=== PATIENT | female | born 1955 | race Caucasian/White ===

== ENCOUNTER 2017-10-04 16:25 | Emergency (ER) | payer BC ==
[~2017-10-04] VITALS: Ht 167.6 cm; Wt 80.3 kg
[~2017-10-04 16:25] MED LIST: LORTA5 PO
[2017-10-04 16:27] VITALS: BP 182/90; PULSE 83; RESP 16; TEMP 97.4; O2SAT 95
[2017-10-04] MEDS ORDERED: PENT400T PO (16:47)
[2017-10-04] MEDS ORDERED: HYDR-3516 PO (16:47)
[2017-10-04] MEDS ORDERED: LEVO100T5 PO (16:47)
[2017-10-04] MEDS ORDERED: PROZ40CA PO (16:47)
[2017-10-04] MEDS ORDERED: LETR2.5T (16:47)
[2017-10-04] MEDS ORDERED: GABA300C5 PO (16:47)
[2017-10-04] MEDS ORDERED: ROSU1TAB10 PO (16:48)
--- NOTE | 2017-10-04 16:56 | PD ---
HPI Chief Complaint: Abdominal Pain Time Seen by Provider: 16:35 Travel History International Travel<30 days: No Contact w/Intl Traveler<30days: No Traveled to known affect area: No History of Present Illness HPI 61-year-old female presents with lower abdominal pain. She states she is also nauseous and had 1 episode where she vomited a small amount. She denies any other concurrent concerns. She states she went to an urgent care and they referred her here for further care. Quality of pain is crampy. Severity is moderate. She denies any migration the pain. She denies specific modifying factors. She states she had diverticulitis once a couple years ago when she went to the hospital for bloody diarrhea. She denies any other significant GI issues that she can recall. PFSH Past Medical History Hx Anticoagulant Therapy: Yes (BABY ASA DAILY) Anxiety: Yes Depression: Yes Cancer: Yes (breast dx aug 2013) Cardiovascular Problems: Yes (CHOL) High Cholesterol: Yes Diabetes: No Diminished Hearing: No Thyroid Disease: Yes Tetanus Vaccination: Unknown Influenza Vaccination: Yes ?: Not Tubal Ligation: Yes Social History Alcohol Use: No Tobacco Use: No Substance Use: No Allergies-Medications (Allergen,Severity, Reaction): Coded Allergies: cefuroxime (Unverified Allergy, Severe, rash, 10/04/17) erythromycin base (Unverified Allergy, Severe, rash, 10/04/17) levofloxacin (Unverified Allergy, Severe, rash, 10/04/17) Sulfa (Sulfonamide Antibiotics) (Verified Allergy, Unknown, 10/04/17) adhesive (Verified Allergy, Unknown, 10/04/17) azithromycin (Verified Allergy, Unknown, 10/04/17) doxycycline (Verified Allergy, Unknown, 10/04/17) prochlorperazine (Verified Allergy, Unknown, 10/04/17) Reported Meds & Prescriptions Reported Meds & Active Scripts Active Percocet (Oxycodone-Acetaminophen) 5-325 mg Tab 1 Tab PO Q6H PRN Reported Rosuvastatin (Rosuvastatin Calcium) 40 Mg Tab 40 Mg PO DAILY Pentoxifylline ER (Pentoxifylline) 400 Mg Tab 400 Mg PO TID Hydrocodone-Acetaminophen 5-325 mg Tab 1 Tab PO Q6H PRN Levothyroxine (Levothyroxine Sodium) 100 Mcg Tab 100 Mcg PO DAILY Letrozole 2.5 Mg Tab Gabapentin 300 Mg Cap 300 Mg PO QID Prozac (Fluoxetine HCl) 40 Mg Cap 40 Mg PO BID Review of Systems Except as stated in HPI: all other systems reviewed are Neg Physical Exam Narrative GENERAL: Well-nourished, well-developed patient. SKIN: Warm and dry. HEAD: Normocephalic and atraumatic. EYES: No injection or drainage. ENT: No nasal drainage noted. NECK: Supple, trachea midline. CARDIOVASCULAR: Regular rate and rhythm RESPIRATORY: No increased effort. No accessory muscle use. GASTROINTESTINAL: Abdomen soft, tender left lower quadrant, nondistended. No rebound or guarding EXTREMITIES: No edema. NEUROLOGICAL: Awake and alert. Motor and sensory grossly within normal limits. Normal speech. Data Data Last Documented VS Vital Signs Date Time Temp Pulse Resp B/P (MAP) Pulse Ox O2 Delivery O2 Flow Rate FiO2 10/04/17 19:34 10/04/17 18:32 75 96 Nasal Cannula 1.00 10/04/17 16:27 97.4 16 Orders Orders Complete Blood Count With Diff (10/04/17 16:35) Comprehensive Metabolic Panel (10/04/17 16:35) Urinalysis - C+S If Indicated (10/04/17 16:35) Lipase (10/04/17 16:35) Ct Abd/Pel W Iv Contrast(Rout) (10/04/17 ) Iv Access Insert/Monitor (10/04/17 16:35) Ondansetron Inj (Zofran Inj) (10/04/17 17:00) Iohexol 350 Inj (Omnipaque 350 Inj) (10/04/17 18:13) Ketorolac Inj (Toradol Inj) (10/04/17 18:45) Ed Discharge Order (10/04/17 18:51) Labs Laboratory Tests Test 10/04/17 17:06 10/04/17 17:36 White Blood Count 7.6 TH/MM3 Red Blood Count 4.97 MIL/MM3 Hemoglobin 14.4 GM/DL Hematocrit 44.3 % Mean Corpuscular Volume 89.1 FL Mean Corpuscular Hemoglobin 29.0 PG Mean Corpuscular Hemoglobin Concent 32.6 % Red Cell Distribution Width 13.2 % Platelet Count 237 TH/MM3 Mean Platelet Volume 7.3 FL Neutrophils (%) (Auto) 74.5 % Lymphocytes (%) (Auto) 15.2 % Monocytes (%) (Auto) 7.8 % Eosinophils (%) (Auto) 1.9 % Basophils (%) (Auto) 0.6 % Neutrophils # (Auto) 5.7 TH/MM3 Lymphocytes # (Auto) 1.2 TH/MM3 Monocytes # (Auto) 0.6 TH/MM3 Eosinophils # (Auto) 0.1 TH/MM3 Basophils # (Auto) 0.0 TH/MM3 CBC Comment DIFF FINAL Differential Comment Blood Urea Nitrogen 25 MG/DL Creatinine 0.90 MG/DL Random Glucose 101 MG/DL Total Protein 7.5 GM/DL Albumin 3.7 GM/DL Calcium Level 9.0 MG/DL Alkaline Phosphatase 118 U/L Aspartate Amino Transf (AST/SGOT) 24 U/L Alanine Aminotransferase (ALT/SGPT) 34 U/L Total Bilirubin 0.4 MG/DL Sodium Level 142 MEQ/L Potassium Level 3.6 MEQ/L Chloride Level 108 MEQ/L Carbon Dioxide Level 26.1 MEQ/L Anion Gap 8 MEQ/L Estimat Glomerular Filtration Rate 64 ML/MIN Lipase 168 U/L Urine Color YELLOW Urine Turbidity CLEAR Urine pH 6.0 Urine Specific [place] 1.014 Urine Protein 30 mg/dL Urine Glucose (UA) NEG mg/dL Urine Ketones NEG mg/dL Urine Occult Blood MOD Urine Nitrite NEG Urine Bilirubin NEG Urine Leukocyte Esterase SMALL Urine RBC 4-9 /hpf Urine WBC 3-5 /hpf Urine Squamous Epithelial Cells 0-5 /hpf Microscopic Urinalysis Comment CULT NOT INDICATED MDM Medical Decision Making Medical Screen Exam Complete: Yes Emergency Medical Condition: Yes Medical Record Reviewed: Yes (past history confirmed) Interpretation(s) CBC & BMP Diagram 10/04/17 17:06 Total Protein 7.5, Albumin 3.7, Calcium Level 9.0, Alkaline Phosphatase 118 H, Aspartate Amino Transf (AST/SGOT) 24, Alanine Aminotransferase (ALT/SGPT) 34, Total Bilirubin 0.4 Last 24 hours Impressions Abdomen/Pelvis CT 10/04/17 0000 Signed Impressions: Service Date/Time: Wednesday, October 04, 2017 18:02 - CONCLUSION: 1. 9 mm left UPJ stone with mild hydronephrosis. 2. Bilateral L5 pars defects. Piter Montoya Jr., MD Differential Diagnosis Diverticulitis, kidney stone, pancreatitis, colitis Narrative Course Will check blood work, urinalysis, CT scan and reevaluate Will provide with Toradol for pain control, CT shows large left UPJ stone, Patient denies any new complaints and states that they are feeling better. Patient happy with care, all questions answered. Patient knows that follow up is incumbent on them and to return to the emergency room immediately if new or worsening symptoms develop. Patient given strict return precautions, vitals reviewed and are normal, agrees to further workup as an outpatient. Physician Communication Physician Communication dr dumas states to discharge and have patient follow in clinic Tuesday Diagnosis Primary Impression: Ureteral calculus, left Referrals: Ash Dumas DO call for appointment tuesday this week Patient Instructions: General Instructions Additional Instructions: return as needed, percocet as needed for severe pain Med/Other Pt SpecificInfo: Prescription(s) given Scripts Oxycodone-Acetaminophen (Percocet) 5-325 mg Tab 1 TAB PO Q6H Y for PAIN, #15 TAB 0 Refills Prov: Pascale Lambert MD 10/04/17 Disposition: 01 DISCHARGE HOME Condition: Stable Pascale Lambert MD Oct 04, 2017 16:56
[2017-10-04] MEDS ORDERED: ONDANSETRON HCL 4 MG/2 ML VIAL IV PUSH ONE (17:00)
[2017-10-04 17:13] LABS: AUTOMATED NEUTROPHIL # 5.7 TH/MM3 (1.8-7.7); BASOPHIL % 0.6 % (0.0-2.0); EOSINOPHIL # 0.1 TH/MM3 (0-0.4); EOSINOPHIL % 1.9 % (0.0-4.0); HEMATOCRIT 44.3 % (35.0-46.0); HEMOGLOBIN 14.4 GM/DL (11.6-15.3); LYMPH % 15.2 % (9.0-44.0); LYMPHOCYTE # 1.2 TH/MM3 (1.0-4.8); MEAN CELL VOLUME 89.1 FL (80.0-100.0); MEAN CORPUSCULAR HGB CONC 32.6 % (32.0-36.0); MEAN PLATELET VOLUME 7.3 FL (7.0-11.0); MONO % 7.8 % (0.0-8.0); MONOCYTE # 0.6 TH/MM3 (0-0.9); NEUT % 74.5 % (16.0-70.0); PLATELET COUNT 237 TH/MM3 (150-450); RED BLOOD COUNT 4.97 MIL/MM3 (4.00-5.30); RED CELL DISTRIBUTION WIDTH 13.2 % (11.6-17.2); WHITE BLOOD COUNT 7.6 TH/MM3 (4.0-11.0)
[2017-10-04 17:24] LABS: CHLORIDE 108 MEQ/L (98-107); SODIUM (NA) 142 MEQ/L (136-145)
[2017-10-04 17:28] LABS: ALBUMIN 3.7 GM/DL (3.4-5.0); BICARBONATE 26.1 MEQ/L (21.0-32.0); BLOOD UREA NITROGEN 25 MG/DL (7-18); GLUCOSE,RANDOM 101 MG/DL (74-106); LIPASE 168 U/L (73-393)
[2017-10-04 17:31] LABS: ALT (GPT) 34 U/L (10-53); AST (GOT) 24 U/L (15-37); GLOMERULAR FILTRATION RATE 64 ML/MIN (>89)
[2017-10-04 17:32] LABS: TOTAL BILIRUBIN ADULT 0.4 MG/DL (0.2-1.0); TOTAL PROTEIN 7.5 GM/DL (6.4-8.2)
[2017-10-04 17:34] LABS: ALKALINE PHOSPHATASE 118 U/L (45-117)
[2017-10-04 17:49] VITALS: BP 117/77; PULSE 74; O2SAT 99
[2017-10-04 17:54] LABS: BILIRUBIN, URINE NEG (NEG); BLOOD, URINE MOD (NEG); GLUCOSE,URINE NEG (NEG); KETONE, URINE NEG (NEG); NITRITE,URINE NEG (NEG); URINE LEUKOCYTE ESTERASE SMALL (NEG)
[2017-10-04] MEDS ORDERED: IOHEXOL 350 MG/ML 10 ML VIAL (for RAD DIAG) IVCONTRAST ONE (18:13)
[2017-10-04 18:14] LABS: URINE COLOR YELLOW (YELLW/STRAW)
[2017-10-04 18:15] LABS: SQUAMOUS EPITHELIAL CELL URINE 0-5 /hpf (0-5)
[2017-10-04 18:32] VITALS: BP 198/113; PULSE 75; O2SAT 96
--- NOTE | 2017-10-04 18:35 | RADRPT ---
EXAM DATE/TIME: 10/04/2017 18:02 [facility] COMPARISON: No previous studies available for comparison. INDICATIONS : Left lower quadrant pain. IV CONTRAST: 95 cc Omnipaque 350 (iohexol) IV ORAL CONTRAST: No oral contrast ingested. RADIATION DOSE: 15.01 CTDIvol (mGy) MEDICAL HISTORY : Carcinoma, breast. SURGICAL HISTORY : None. ENCOUNTER: Initial ACUITY: 2 days PAIN SCALE: 4/10 LOCATION: Left lower quadrant TECHNIQUE: Volumetric scanning of the abdomen and pelvis was performed. Using automated exposure control and ad justment of the mA and/or kV according to patient size, radiation dose was kept as low as reasonably achievable to obtain optimal diagnostic quality images. DICOM format image data is available electro nically for review and comparison. FINDINGS: LOWER LUNGS: The visualized lower lungs are clear. LIVER: Homogeneous density without lesion. There is no dilation of the biliary tree. No calcified gallston es. SPLEEN: Normal size without lesion. PANCREAS: Within normal limits. KIDNEYS: There is a 9 mm stone involving the left UPJ. There is mild hydronephrosis. No other stones observed. Right kidney is unremarkable. No perinephric stranding or fluid collections. ADRENAL GLANDS: Within normal limits. VASCULAR: There is no aortic aneurysm. BOWEL/MESENTERY: The stomach, small bowel, and colon demonstrate no acute abnormality. There is no free intraperitone al air or fluid. ABDOMINAL WALL: Within normal limits. RETROPERITONEUM: There is no lymphadenopathy. BLADDER: No wall thickening or mass. REPRODUCTIVE: Within normal limits. INGUINAL: There is no lymphadenopathy or hernia. MUSCULOSKELETAL: Bilateral L5 pars defects with mild grade 1 anterolisthesis. CONCLUSION: 1. 9 mm left UPJ stone with mild hydronephrosis. 2. Bilateral L5 pars defects. Piter Montoya Jr., MD on October 04, 2017 at 18:28 Board Certified Radiologist. This report was verified electronically.
[2017-10-04] MEDS ORDERED: KETOROLAC TROMETHAMINE 30 MG/ML (IVP) VIAL IV PUSH ONE (18:45)
[2017-10-04] MEDS ORDERED: PERC5TAB12 PO ×2 (18:53→18:54)
[2017-10-07] MEDS ORDERED: LYSI1000 (09:22)
[2017-10-07] MEDS ORDERED: OMEP20TA93 PO (09:22)
[2017-10-07] MEDS ORDERED: ASPI-516 CHEW (09:22)
[2017-10-07] MEDS ORDERED: IBUP1TAB7 PO (09:22)
[2017-10-07] MEDS ORDERED: ZOFR4TAB PO (10:08)
[2017-10-07] MEDS ORDERED: PERC5TAB12 PO (10:08)
== END 2017-10-04 19:36 | disposition home or self-care (01) ==
LOC: PHED 16:25
DX: N13.2 Hydronephrosis with renal and ureteral calculous obstruction (principal); E78.00 Pure hypercholesterolemia, unspecified; F32.9 Major depressive disorder, single episode, unspecified; Z85.3 Personal history of malignant neoplasm of breast; Z79.82 Long term (current) use of aspirin
CPT/HCPCS: 74177; 80053; 81001; 83690; 85025; 96374; 99285; J1885; Q9967

== ENCOUNTER → 2017-10-26 | Day surgery (SDC) | payer BC ==
[~2017-10-26] MED LIST changes: +ASPI-516 CHEW; +CALC1TAB12 PO; +CHLORHEXIDINE GLUCONATE 2 % 1 PACK (2 CLOTHS) TOPICAL PRN; +GABA300C5 PO; +GLUC500T4 PO; +IBUP1TAB7 PO; +LACTATED RINGER'S 1000 ML IV PRN; +LETR2.5T PO; +LEVO100T5 PO; -LORTA5 PO; +LYSI1000 PO; +METOPROLOL TARTRATE 25 MG TAB PO PRN; +MISC INFORMATION SCH; +OMEP20TA93 PO; +PENT400T PO; +PERC5TAB12 PO; +POVIDONE IODINE 5% (ANTISEPSIS KIT) 4 APPLICATIONS EACH NARE PRN; +PROZ40CA PO; +ROSU1TAB10 PO; +SODIUM CHLORID 0.9% 500 ML IV PRN; +VITA200C3 PO; +VITACAP7 PO; +ZOFR4TAB PO; +ceFAZolin 1,000 MG/NS 100 ML IV SCH
[2017-10-26 05:45] VITALS: BP 151/94; PULSE 75; RESP 20; TEMP 97.8; O2SAT 100
--- NOTE | 2017-10-26 06:18 | RADRPT ---
EXAM DATE/TIME: 10/26/2017 05:37 [facility] COMPARISON: CT ABDOMEN & PELVIS W CONTRAST, October 04, 2017, 18:02. INDICATIONS : Pre op lithotripsy. MEDICAL HISTORY : None. SURGICAL HISTORY : None. ENCOUNTER: Initial ACUITY: 1 day PAIN SCORE: 0/10 LOCATION: Bilateral abdomen FINDINGS: 2 supine frontal views of the abdomen demonstrate no definite abnormal densities overlying the kidney s but both kidneys are significantly obscured by overlying bowel gas and stool. The stone previously documented at the left ureteropelvic junction is not definitely seen. There are multiple high density structures associated with the colon. A large amount of stool is present. No organomegaly is present . Bones demonstrate no acute finding. Lung bases are clear. CONCLUSION: No renal stones are identified. However, there is a large amount of stool and bowel gas obscuring the kidneys. Multiple ovoid high density structures are seen and are likely associated with the colon an d rectum. Chip Oakley MD on October 26, 2017 at 6:14 Board Certified Radiologist. This report was verified electronically.
== END | disposition home or self-care (01) ==
LOC: HSDC 05:18
PROVIDERS: ATTEND Urology
DX: N20.0 Calculus of kidney (principal); Z53.09 Procedure and treatment not carried out because of other contraindication
CPT/HCPCS: 74018; 99211; G0463

== ENCOUNTER → 2017-11-16 | Day surgery (SDC) | payer BC ==
[~2017-11-16] VITALS: Ht 170.2 cm; Wt 80.5 kg
[~2017-11-16] MED LIST changes: +AMLO5 PO; +DEXAMETHASONE SOD PHOS 4 MG/ML VIAL IV ONE; +DO NOT ADM ANY ANTICOAGULANT DRUGS PRN; +LIDOCAINE HCL 1% PF 5 ML SYRINGE OTHER ONE; +MACR100C2 PO; +MIDAZOLAM HCL 2 MG/2 ML VIAL ONE; -MISC INFORMATION SCH; +ONDANSETRON HCL 4 MG/2 ML VIAL IV ONE; +ONDANSETRON HCL 4 MG/2 ML VIAL IV PUSH PRN; +PROPOFOL 200 MG/20 ML AMP IV ONE; -ceFAZolin 1,000 MG/NS 100 ML IV SCH; +oxyCODONE/ACETAMINOPHEN 5 MG/325 MG TAB PO PRN
--- NOTE | 2017-11-16 09:08 | RADRPT ---
EXAM DATE/TIME: 11/16/2017 08:40 [facility] COMPARISON: ABDOMEN KUB ONLY, October 26, 2017, 5:37. INDICATIONS : Pre op ESWL. Left side kidney stone. MEDICAL HISTORY : Carcinoma, breast. SURGICAL HISTORY : Infusaport ENCOUNTER: Initial ACUITY: 1 day PAIN SCORE: 10 LOCATION: Left Abdomen FINDINGS: Single portable supine view of the abdomen demonstrates no definite abnormal densities overlying the kidneys. The kidneys, particularly the right kidney, is obscured by overlying bowel gas and stool. No concerning densities are seen along the expected course of ureters or within the pelvis. There are p ersistent ovoid densities are likely associated with the colon. No organomegaly or signs of bowel structures are present. No acute osseous abnormality is visualized. CONCLUSION: No renal stones are identified. The kidneys are partially obscured by bowel gas and stool. Chip Oakley MD on November 16, 2017 at 9:04 Board Certified Radiologist. This report was verified electronically.
[2017-11-16 09:31] LABS: AUTOMATED NEUTROPHIL # 4.2 TH/MM3 (1.8-7.7); BASOPHIL # 0.1 TH/MM3 (0-0.2); BASOPHIL % 0.9 % (0.0-2.0); EOSINOPHIL # 0.2 TH/MM3 (0-0.4); EOSINOPHIL % 3.9 % (0.0-4.0); HEMATOCRIT 39.3 % (35.0-46.0); HEMOGLOBIN 13.6 GM/DL (11.6-15.3); LYMPH % 17.3 % (9.0-44.0); LYMPHOCYTE # 1.1 TH/MM3 (1.0-4.8); MEAN CELL VOLUME 88.9 FL (80.0-100.0); MEAN CORPUSCULAR HEMOGLOBIN 30.7 PG (27.0-34.0); MEAN CORPUSCULAR HGB CONC 34.5 % (32.0-36.0); MEAN PLATELET VOLUME 7.4 FL (7.0-11.0); MONO % 8.8 % (0.0-8.0); MONOCYTE # 0.5 TH/MM3 (0-0.9); NEUT % 69.1 % (16.0-70.0); PLATELET COUNT 225 TH/MM3 (150-450); RED BLOOD COUNT 4.42 MIL/MM3 (4.00-5.30); RED CELL DISTRIBUTION WIDTH 14.3 % (11.6-17.2); WHITE BLOOD COUNT 6.1 TH/MM3 (4.0-11.0)
--- NOTE | 2017-11-16 12:22 | PD.OP ---
Operative Report Date of Surgery: Nov 16, 2017 Preoperative Diagnosis: (1) Ureteral calculus, left Postoperative Diagnosis: (1) Ureteral calculus, left Procedure: Extracorporeal shockwave lithotripsy left proximal ureteral calculus Anesthesia: General Surgeon: Alfonzo Anguiano Vocational Evaluator(s): None Operation and Findings: Indication for procedure: Case of a pleasant 61-year-old female with a 9 mm proximal left ureteral calculus who presents today to undergo shockwave lithotripsy. Operative procedure in detail: Patient was brought to the operating room suite and placed supine on the lithotripsy table. She was then placed under general anesthesia. After appropriate timeout was undertaken I proceeded with localization of the patient's left proximal ureteral calculus with fluoroscopy. The patient next underwent extracorporeal shockwave lithotripsy utilizing the [employer] Piezolith 3000 device. The patient received a total of 3000 shocks with a maximum power level setting of 20. At the conclusion of the procedure the stone appeared clinical audiologist in intensity consistent with fragmentation. The patient tolerated the procedure without complications and was transferred to the PACU in satisfactory condition. Alfonzo Anguiano MD Nov 16, 2017 12:22
[2017-11-16 13:19] VITALS: PULSE 68; RESP 16; TEMP 97.5; O2SAT 99
[2017-11-16 14:05] VITALS: BP 150/90
--- NOTE | 2017-11-17 09:22 | EKG ---
Date Performed: 11/16/2017 Time Performed: 09:07:19 PTAGE: 61 years EKG: Sinus rhythm NORMAL ECG Compared to PREVIOUS TRACING , nonspecific T-wave abnormalities have resolved. PREVIOUS TRACIN09/19 19.33 DOCTOR: Darius Mcconnell Interpretating Date/Time 11/17/2017 09:20:20
== END | disposition home or self-care (01) ==
LOC: HSDC 08:16
PROVIDERS: ATTEND Urology
DX: N20.1 Calculus of ureter (principal); E78.5 Hyperlipidemia, unspecified; E03.9 Hypothyroidism, unspecified; Z85.828 Personal history of other malignant neoplasm of skin; Z85.3 Personal history of malignant neoplasm of breast
CPT/HCPCS: 00873; 50590; 74018; 85025; 93005; J1100; J2250; J2405; J3010; J7120

== ENCOUNTER 2017-11-18 11:00 | Inpatient (IN) | payer BC ==
[~2017-11-18] VITALS: Ht 170.2 cm; Wt 80.0 kg
[2017-11-18] VITALS (7 sets, daily range): BP systolic 136–204; BP diastolic 66–113; PULSE 82–98; RESP 12–28; TEMP 98.1–98.5; O2SAT 93–99
[~2017-11-18 11:00] MED LIST changes: -AMLO5 PO; -CHLORHEXIDINE GLUCONATE 2 % 1 PACK (2 CLOTHS) TOPICAL PRN; -DEXAMETHASONE SOD PHOS 4 MG/ML VIAL IV ONE; -DO NOT ADM ANY ANTICOAGULANT DRUGS PRN; -LACTATED RINGER'S 1000 ML IV PRN; -LIDOCAINE HCL 1% PF 5 ML SYRINGE OTHER ONE; -MACR100C2 PO; -METOPROLOL TARTRATE 25 MG TAB PO PRN; -MIDAZOLAM HCL 2 MG/2 ML VIAL ONE; -ONDANSETRON HCL 4 MG/2 ML VIAL IV ONE; -ONDANSETRON HCL 4 MG/2 ML VIAL IV PUSH PRN; -POVIDONE IODINE 5% (ANTISEPSIS KIT) 4 APPLICATIONS EACH NARE PRN; -PROPOFOL 200 MG/20 ML AMP IV ONE; -SODIUM CHLORID 0.9% 500 ML IV PRN; -ZOFR4TAB PO; -oxyCODONE/ACETAMINOPHEN 5 MG/325 MG TAB PO PRN
[2017-11-18 14:01] LABS: AUTOMATED NEUTROPHIL # 13.6 TH/MM3 (1.8-7.7); BASOPHIL % 0.3 % (0.0-2.0); EOSINOPHIL # 0.1 TH/MM3 (0-0.4); EOSINOPHIL % 0.6 % (0.0-4.0); HEMATOCRIT 43.6 % (35.0-46.0); HEMOGLOBIN 14.7 GM/DL (11.6-15.3); LYMPH % 7.8 % (9.0-44.0); LYMPHOCYTE # 1.3 TH/MM3 (1.0-4.8); MEAN CELL VOLUME 90.5 FL (80.0-100.0); MEAN CORPUSCULAR HEMOGLOBIN 30.5 PG (27.0-34.0); MEAN CORPUSCULAR HGB CONC 33.7 % (32.0-36.0); MEAN PLATELET VOLUME 7.5 FL (7.0-11.0); MONO % 7.5 % (0.0-8.0); MONOCYTE # 1.2 TH/MM3 (0-0.9); NEUT % 83.8 % (16.0-70.0); PLATELET COUNT 256 TH/MM3 (150-450); RED BLOOD COUNT 4.82 MIL/MM3 (4.00-5.30); RED CELL DISTRIBUTION WIDTH 14.5 % (11.6-17.2); WHITE BLOOD COUNT 16.2 TH/MM3 (4.0-11.0)
--- NOTE | 2017-11-18 14:14 | PD ---
HPI Chief Complaint: Abdominal Pain Time Seen by Provider: 14:07 Travel History International Travel<30 days: No Contact w/Intl Traveler<30days: No Traveled to known affect area: No History of Present Illness HPI 61-year-old female with history of CAD, COPD, breast cancer, presents to the emergency department for evaluation of left-sided flank pain. Patient recently had lithotripsy on a 9 mm left-sided kidney stone by Dr. Anguiano on October. She was discharged home.. Her pain control was initially working but has since gotten unbearable, specifically today. Patient denies any hematuria. States she has been voiding without difficulty. Pain is stabbing, constant and radiates to her left lower abdomen. She thinks she may have had a fever yesterday. She has been nauseous without vomiting. Pain is a 10 out of 10. Denies any other symptoms at this time. She did call Dr. Dumas's office who advised she come to the emergency department. PFSH Past Medical History Hx Anticoagulant Therapy: Yes (BABY ASA DAILY) Anxiety: Yes Depression: Yes Cancer: Yes (breast dx aug 2013, SKIN CA) Cardiovascular Problems: Yes (HIGH CHOLESTORAL) High Cholesterol: Yes Diabetes: No Diminished Hearing: No Endocrine: No Genitourinary: No Hepatitis: No Hiatal Hernia: No Immune Disorder: No Musculoskeletal: Yes (OA) Neurologic: Yes (DDD) Psychiatric: No Reproductive: No Respiratory: Yes (SLEEP APNEA USE CPAP) Thyroid Disease: Yes Tubal Ligation: Yes Past Surgical History Abdominal Surgery: No AICD: No Body Medical Devices: LEFT BREAST MARKER Cardiac Surgery: No Ear Surgery: No Endocrine Surgery: No Eye Surgery: No Genitourinary Surgery: No Gynecologic Surgery: Yes (LEFT LUMPECTOMY, TUBAL LIGATION) Joint Replacement: No Oral Surgery: No Pacemaker: No Thoracic Surgery: No Social History Alcohol Use: No Tobacco Use: No Substance Use: No Allergies-Medications (Allergen,Severity, Reaction): Coded Allergies: cefuroxime (Verified Allergy, Severe, rash, 11/18/17) erythromycin base (Verified Allergy, Severe, rash, 11/18/17) levofloxacin (Verified Allergy, Severe, rash, 11/18/17) Sulfa (Sulfonamide Antibiotics) (Verified Allergy, Unknown, 11/18/17) adhesive (Verified Allergy, Unknown, 11/18/17) azithromycin (Verified Allergy, Unknown, 11/18/17) doxycycline (Verified Allergy, Unknown, 11/18/17) prochlorperazine (Verified Allergy, Unknown, 11/18/17) Reported Meds & Prescriptions Reported Meds & Active Scripts Active Percocet (Oxycodone-Acetaminophen) 5-325 mg Tab 1-2 Tab PO Q6H PRN Percocet (Oxycodone-Acetaminophen) 5-325 mg Tab 1 Tab PO Q6H PRN Reported Vitamin E 200 Unit Cap 400 Units PO DAILY B Complex (B-Complex Vitamins) 1 Cap 1 Cap PO DAILY Calcium 500 +D (Calcium Carbonate-Cholecalciferol) 500-400 Mg-Unit Tab 1 Tab PO DAILY Glucosamine-Chondroitin 500-400 Mg Tab 1 Tab PO DAILY Lysine (Lysine HCl) 1,000 Mg Tab 1,000 Mg PO DAILY Omeprazole 20 Mg Tab 20 Mg PO DAILY Ibuprofen 800 Mg Tab 800 Mg PO Q6HR PRN Aspirin 81 Mg Chew 81 Mg CHEW DAILY Rosuvastatin (Rosuvastatin Calcium) 40 Mg Tab 40 Mg PO DAILY Pentoxifylline ER (Pentoxifylline) 400 Mg Tab 400 Mg PO TID Levothyroxine (Levothyroxine Sodium) 100 Mcg Tab 100 Mcg PO DAILY Letrozole 2.5 Mg Tab 2.5 Mg PO DAILY Gabapentin 300 Mg Cap 300 Mg PO BID Prozac (Fluoxetine HCl) 40 Mg Cap 40 Mg PO BID Review of Systems Except as stated in HPI: all other systems reviewed are Neg Physical Exam Narrative GENERAL: Well-nourished female patient, sitting in bed, in mild distress, secondary to pain. SKIN: Focused skin assessment warm/dry. HEAD: Atraumatic. Normocephalic. EYES: Pupils equal and round. No scleral icterus. No injection or drainage. ENT: No nasal bleeding or discharge. Mucous membranes pink and moist. NECK: Trachea midline. No JVD. CARDIOVASCULAR: Tachycardic rate and rhythm. No murmur appreciated. RESPIRATORY: No accessory muscle use. Clear to auscultation. Breath sounds equal bilaterally. GASTROINTESTINAL: Abdomen soft, non-tender, nondistended. No guarding. No rebound tenderness. Hepatic and splenic margins not palpable. MUSCULOSKELETAL: No obvious deformities. No clubbing. No cyanosis. No edema. Left CVA tenderness. NEUROLOGICAL: Awake and alert. No obvious cranial nerve deficits. Motor grossly within normal limits. Normal speech. PSYCHIATRIC: Appropriate mood and affect; insight and judgment normal. Data Data Last Documented VS Vital Signs Date Time Temp Pulse Resp B/P (MAP) Pulse Ox O2 Delivery O2 Flow Rate FiO2 11/18/17 15:42 87 14 154/88 (110) 94 Room Air 11/18/17 11:05 98.2 Orders Orders Complete Blood Count With Diff (11/18/17 11:56) Comprehensive Metabolic Panel (11/18/17 11:56) Urinalysis - C+S If Indicated (11/18/17 11:56) Lipase (11/18/17 11:56) Iv Access Insert/Monitor (11/18/17 14:15) Ecg Monitoring (11/18/17 14:15) Oximetry (11/18/17 14:15) Ondansetron Inj (Zofran Inj) (11/18/17 14:15) Sodium Chlor 0.9% 1000 Ml Inj (Ns 1000 M (11/18/17 14:15) Sodium Chloride 0.9% Flush (Ns Flush) (11/18/17 14:15) Ketorolac Inj (Toradol Inj) (11/18/17 14:15) Ct Abd/Pel W/O Iv Contrast (11/18/17 ) Labs Laboratory Tests Test 11/18/17 12:55 11/18/17 15:30 White Blood Count 16.2 TH/MM3 Red Blood Count 4.82 MIL/MM3 Hemoglobin 14.7 GM/DL Hematocrit 43.6 % Mean Corpuscular Volume 90.5 FL Mean Corpuscular Hemoglobin 30.5 PG Mean Corpuscular Hemoglobin Concent 33.7 % Red Cell Distribution Width 14.5 % Platelet Count 256 TH/MM3 Mean Platelet Volume 7.5 FL Neutrophils (%) (Auto) 83.8 % Lymphocytes (%) (Auto) 7.8 % Monocytes (%) (Auto) 7.5 % Eosinophils (%) (Auto) 0.6 % Basophils (%) (Auto) 0.3 % Neutrophils # (Auto) 13.6 TH/MM3 Lymphocytes # (Auto) 1.3 TH/MM3 Monocytes # (Auto) 1.2 TH/MM3 Eosinophils # (Auto) 0.1 TH/MM3 Basophils # (Auto) 0.0 TH/MM3 CBC Comment DIFF FINAL Differential Comment Blood Urea Nitrogen 13 MG/DL Creatinine 1.35 MG/DL Random Glucose 124 MG/DL Total Protein 8.0 GM/DL Albumin 4.1 GM/DL Calcium Level 9.7 MG/DL Alkaline Phosphatase 132 U/L Aspartate Amino Transf (AST/SGOT) 22 U/L Alanine Aminotransferase (ALT/SGPT) 33 U/L Total Bilirubin 0.6 MG/DL Sodium Level 138 MEQ/L Potassium Level 3.8 MEQ/L Chloride Level 101 MEQ/L Carbon Dioxide Level 28.6 MEQ/L Anion Gap 8 MEQ/L Estimat Glomerular Filtration Rate 40 ML/MIN Lipase 99 U/L Urine Color LIGHT-YELLOW Urine Turbidity CLEAR Urine pH 8.0 Urine Specific [place] 1.009 Urine Protein TRACE mg/dL Urine Glucose (UA) NEG mg/dL Urine Ketones NEG mg/dL Urine Occult Blood MOD Urine Nitrite NEG Urine Bilirubin NEG Urine Urobilinogen LESS THAN 2.0 MG/DL Urine Leukocyte Esterase TRACE Urine RBC 4 /hpf Urine WBC 3 /hpf Microscopic Urinalysis Comment CULT NOT INDICATED MDM Medical Decision Making Medical Screen Exam Complete: Yes Emergency Medical Condition: Yes Medical Record Reviewed: Yes Differential Diagnosis Renal calculi versus hydronephrosis versus pyelonephritis versus other UTI Narrative Course 61-year-old female presents to the emergency department for evaluation of left- sided flank pain. Patient appears in moderate distress secondary to pain. She is given IV fluids and IV Toradol. Lab work and CT imaging is ordered. Patient has had an increase in her white count to 16.2, with a neutrophilia of 13.6. Creatinine has increased 1.35 with GFR 40. BUN is 13. Urinalysis is with moderate occult blood, trace leukocyte esterase, 4 RBCs, [address] imaging is completed shows fragmented stone on the left side, 4 mm in the bladder and a 5 mm one at the distal ureter. There is slight increased moderate left-sided hydronephrosis with perinephric stranding which is likely postprocedural. I have discussed the patient with Dr. Dumas, urologist radiation control specialist. He recommends observation admission for IV fluids and pain control. Plan is discussed with the patient and her . They are in agreement with this plan of care. Diagnosis Primary Impression: Ureteral calculus, left Additional Impression: Flank pain Admitting Information Admitting Physician Requests: Observation Condition: Stable Meghna Hodges Nov 18, 2017 14:14
[2017-11-18] MEDS ORDERED: KETOROLAC TROMETHAMINE 30 MG/ML (IVP) VIAL IVP ONE (14:15)
[2017-11-18] MEDS ORDERED: SODIUM CHLORIDE 0.9% FLUSH 10 ML FLUSH IV FLUSH PRN ×2 (14:15→18:30)
[2017-11-18] MEDS ORDERED: ONDANSETRON HCL 4 MG/2 ML VIAL IVP ONE (14:15)
[2017-11-18] MEDS ORDERED: SODIUM CHLOR 0.9% 1000 ML INJ 1,000 ML IV SCH (14:15)
[2017-11-18 14:25] LABS: ALBUMIN 4.1 GM/DL (3.4-5.0); ALT (GPT) 33 U/L (10-53); AST (GOT) 22 U/L (15-37); BICARBONATE 28.6 MEQ/L (21.0-32.0); BLOOD UREA NITROGEN 13 MG/DL (7-18); CALCIUM 9.7 MG/DL (8.5-10.1); CHLORIDE 101 MEQ/L (98-107); CREATININE 1.35 MG/DL (0.50-1.00); GLOMERULAR FILTRATION RATE 40 ML/MIN (>89); GLUCOSE,RANDOM 124 MG/DL (74-106); SODIUM (NA) 138 MEQ/L (136-145)
[2017-11-18 14:28] LABS: ALKALINE PHOSPHATASE 132 U/L (45-117); TOTAL BILIRUBIN ADULT 0.6 MG/DL (0.2-1.0)
[2017-11-18 16:25] LABS: BILIRUBIN, URINE NEG (NEG); BLOOD, URINE MOD (NEG); GLUCOSE,URINE NEG (NEG); KETONE, URINE NEG (NEG); NITRITE,URINE NEG (NEG); URINE COLOR LIGHT-YELLOW (YELLW/STRAW); URINE LEUKOCYTE ESTERASE TRACE (NEG)
--- NOTE | 2017-11-18 17:08 | RADRPT ---
EXAM DATE/TIME: 11/18/2017 16:43 [facility] COMPARISON: CT ABDOMEN & PELVIS W CONTRAST, October 04, 2017, 18:02. INDICATIONS : Post lithotripy surgery, diffuse left sided abdomen pain. ORAL CONTRAST: No oral contrast ingested. RADIATION DOSE: 7.50 CTDIvol (mGy) MEDICAL HISTORY : Carcinoma, breast. Renal calculi. SURGICAL HISTORY : Lithotripy on 2017 ENCOUNTER: Initial ACUITY: 2 days PAIN SCALE: 9/10 LOCATION: Left upper quadrant TECHNIQUE: Volumetric scanning of the abdomen and pelvis was performed. Using automated exposure control and ad justment of the mA and/or kV according to patient size, radiation dose was kept as low as reasonably achievable to obtain optimal diagnostic quality images. DICOM format image data is available electro nically for review and comparison. FINDINGS: LOWER LUNGS: The visualized lower lungs are clear. LIVER: Homogeneous density without lesion. There is no dilation of the biliary tree. No calcified gallston es. SPLEEN: Normal size without lesion. PANCREAS: Within normal limits. KIDNEYS: Recently noted 9 mm calcified calculus in the proximal left ureter appears fragmented and smaller wit h a 5 mm fragment in the distal left ureter near the UVJ and a 4 mm fragment in the bladder. There is slightly increased moderate left hydronephrosis with mild perinephric stranding. There is a stable 5 mm calcified calyceal calculus in the mid right kidney. Right kidney is otherwise stable in appearan ce. ADRENAL GLANDS: Within normal limits. VASCULAR: There is no aortic aneurysm. BOWEL/MESENTERY: The stomach, small bowel, and colon demonstrate no acute abnormality. There is no free intraperitone al air or fluid. ABDOMINAL WALL: Within normal limits. RETROPERITONEUM: There is no lymphadenopathy. BLADDER: No wall thickening or mass. REPRODUCTIVE: Within normal limits. INGUINAL: There is no lymphadenopathy or hernia. MUSCULOSKELETAL: Redemonstration of bilateral L5 pars defects. CONCLUSION: 1. Interval fragmentation of 9 mm proximal left ureter calcified calculus with 5 mm fragment in the d istal left ureter near the UVJ and 4 mm fragment in the bladder. There is slightly increased moderate left-sided hydronephrosis with perinephric stranding which is likely postprocedural . However, devel oping pyonephrosis cannot be entirely excluded in the appropriate clinical setting. Ángel Santana MD on November 18, 2017 at 17:00 Board Certified Radiologist. This report was verified electronically.
[2017-11-18] MEDS ORDERED: NALOXONE HCL 0.4 MG/ML AMP IV PUSH PRN (18:30)
[2017-11-18] MEDS ORDERED: KETOROLAC TROMETHAMINE 30 MG/ML (IVP) VIAL IV PUSH PRN ×2 (18:30)
[2017-11-18] MEDS ORDERED: MORPHINE SULFATE 2 MG/ML INJ IV PUSH PRN (18:30)
--- NOTE | 2017-11-18 19:33 | HHI.HP ---
[facility]Staff Admission Diagnosis flank pain; l renal calculi Diagnoses: (1) Intractable pain Diagnosis: Principal (2) Hydronephrosis Diagnosis: Principal (3) Leukocytosis Diagnosis: Principal (4) MEGGAN (acute kidney injury) Diagnosis: Principal (5) HTN (hypertension) Diagnosis: Principal Travel History International Travel<30 Days: No Contact w/Intl Traveler <30 Da: No Traveled to Known Affected Are: No History of Present Illness This is a 61-year-old female with a PMH of Anxiety, Depression, HTN, Hyperlipidemia, Breast CA and COPD who presented to the ER with complaints of left-sided flank pain starting earlier today. S/p Lithotripsy by Dr. Anguiano on 11/16/17 for 9mm left UPJ stone. States she had been doing well post-op w/ Percocet until today. Reports pain is intermittent, severe, 10/10, non- radiating, associated w/ nausea, no vomiting. States she called Dr. Anguiano's office and was instructed to come to the ER. On arrival, BP 204/110, HR 90, O2 sats 98% on RA, Afebrile. WBC 16.2 with elevated neutrophil count. Creatinine 1.35, previously 0.90 on 10/04/17. UA trace LE, mild bacteriuria. CT Abdomen/ Pelvis with interval fragmentation of 9 mm proximal left ureter stone with 5 mm fragment distal left ureter near UVJ and 4 mm fragment in the bladder, slightly increased moderate left-sided hydronephrosis with perinephric stranding. Dr. Anguiano consulted by ER physician. Review of Systems Except as stated in HPI: all other systems reviewed are Neg ROS: 14 point review of systems otherwise negative. Past Family Social History Past Medical History PMH: Anxiety, Depression, HTN, Hyperlipidemia, Breast CA and COPD Past Surgical History PAST SURGICAL HISTORY: Left Lumpectomy, Tubal Ligation, Lithotripsy Allergies: Coded Allergies: cefuroxime (Verified Allergy, Severe, rash, 11/18/17) erythromycin base (Verified Allergy, Severe, rash, 11/18/17) levofloxacin (Verified Allergy, Severe, rash, 11/18/17) Sulfa (Sulfonamide Antibiotics) (Verified Allergy, Unknown, 11/18/17) adhesive (Verified Allergy, Unknown, 11/18/17) azithromycin (Verified Allergy, Unknown, 11/18/17) doxycycline (Verified Allergy, Unknown, 11/18/17) prochlorperazine (Verified Allergy, Unknown, 11/18/17) Family History PAST FAMILY HISTORY: Reviewed. No h/o DM or CAD Social History PAST SOCIAL HISTORY: Negative for alcohol, tobacco or drugs. Physical Exam Vital Signs Vital Signs Date Time Temp Pulse Resp B/P (MAP) Pulse Ox O2 Delivery O2 Flow Rate FiO2 11/18/17 16:00 82 12 169/86 (113) 93 Room Air 11/18/17 15:42 87 14 154/88 (110) 94 Room Air 11/18/17 14:57 90 28 204/110 (141) 98 Room Air 11/18/17 14:36 99 Room Air 11/18/17 11:05 98.2 98 18 172/113 (132) 97 Physical Exam PE: GENERAL: Very pleasant middle-aged white female in no acute distress. at bedside. HEENT: PERRLA, EOMI. No scleral icterus or conjunctival pallor. No lid lag or facial droop. CARDIOVASCULAR: Regular rate and rhythm. No obvious murmurs to auscultation. No chest tenderness to palpation. RESPIRATORY: No obvious rhonchi or wheezing. Clear to auscultation. Breath sounds equal bilaterally. GASTROINTESTINAL: Abdomen soft, non-tender, nondistended. BS normal. Left flank tenderness to palpation. MUSCULOSKELETAL: Extremities without clubbing, cyanosis, or edema. No obvious deformities. NEUROLOGICAL: Awake, alert and oriented x4. No focal neurologic deficits. Moving both upper and lower extremities spontaneously. Laboratory Laboratory Tests Test 11/18/17 12:55 11/18/17 15:30 White Blood Count 16.2 Red Blood Count 4.82 Hemoglobin 14.7 Hematocrit 43.6 Mean Corpuscular Volume 90.5 Mean Corpuscular Hemoglobin 30.5 Mean Corpuscular Hemoglobin Concent 33.7 Red Cell Distribution Width 14.5 Platelet Count 256 Mean Platelet Volume 7.5 Neutrophils (%) (Auto) 83.8 Lymphocytes (%) (Auto) 7.8 Monocytes (%) (Auto) 7.5 Eosinophils (%) (Auto) 0.6 Basophils (%) (Auto) 0.3 Neutrophils # (Auto) 13.6 Lymphocytes # (Auto) 1.3 Monocytes # (Auto) 1.2 Eosinophils # (Auto) 0.1 Basophils # (Auto) 0.0 CBC Comment DIFF FINAL Differential Comment Blood Urea Nitrogen 13 Creatinine 1.35 Random Glucose 124 Total Protein 8.0 Albumin 4.1 Calcium Level 9.7 Alkaline Phosphatase 132 Aspartate Amino Transf (AST/SGOT) 22 Alanine Aminotransferase (ALT/SGPT) 33 Total Bilirubin 0.6 Sodium Level 138 Potassium Level 3.8 Chloride Level 101 Carbon Dioxide Level 28.6 Anion Gap 8 Estimat Glomerular Filtration Rate 40 Lipase 99 Urine Color LIGHT-YELLOW Urine Turbidity CLEAR Urine pH 8.0 Urine Specific [place] 1.009 Urine Protein TRACE Urine Glucose (UA) NEG Urine Ketones NEG Urine Occult Blood MOD Urine Nitrite NEG Urine Bilirubin NEG Urine Urobilinogen LESS THAN 2.0 Urine Leukocyte Esterase TRACE Urine RBC 4 Urine WBC 3 Microscopic Urinalysis Comment CULT NOT INDICATED Result Diagram: 11/18/17 1255 11/18/17 1255 Caprini VTE Risk Assessment Caprini VTE Risk Assessment: No/Low Risk (score <= 1) Caprini Risk Assessment Model Point Value = 1 Point Value = 2 Point Value = 3 Point Value = 5 Age 41-60 Minor surgery BMI > 25 kg/m2 Swollen legs Varicose veins or History of unexplained or recurrent spontaneous Oral contraceptives or hormone replacement Sepsis (< 1 month) Serious lung disease, including pneumonia (< 1 month) Abnormal pulmonary function Acute myocardial infarction Congestive heart failure (< 1 month) History of inflammatory bowel disease Medical patient at bed rest Age 61-74 Arthroscopic surgery Major open surgery (> 45 min) Laparoscopic surgery (> 45 min) Malignancy Confined to bed (> 72 hours) Immobilizing plaster cast Central venous access Age >= 75 History of VTE Family history of VTE Factor V Leiden Prothrombin [id number] Lupus anticoagulant Anticardiolipin antibodies Elevated serum homocysteine Heparin-induced thrombocytopenia Other congenital or acquired thrombophilia Stroke (< 1 month) Elective arthroplasty Hip, pelvis, or leg fracture Acute spinal cord injury (< 1 month) Prophylaxis Regimen Total Risk Factor Score Risk Level Prophylaxis Regimen 0-1 Low Early ambulation 2 Moderate Order ONE of the following: *Sequential Compression Device (SCD) *Heparin 5000 units SQ BID 3-4 Higher Order ONE of the following medications: *Heparin 5000 units SQ TID *Enoxaparin/Lovenox 40 mg SQ daily (WT < 150 kg, CrCl > 30 mL/min) *Enoxaparin/Lovenox 30 mg SQ daily (WT < 150 kg, CrCl > 10-29 mL/min) *Enoxaparin/Lovenox 30 mg SQ BID (WT < 150 kg, CrCl > 30 mL/min) AND/OR *Sequential Compression Device (SCD) 5 or more Highest Order ONE of the following medications: *Heparin 5000 units SQ TID (Preferred with Epidurals) *Enoxaparin/Lovenox 40 mg SQ daily (WT < 150 kg, CrCl > 30 mL/min) *Enoxaparin/Lovenox 30 mg SQ daily (WT < 150 kg, CrCl > 10-29 mL/min) *Enoxaparin/Lovenox 30 mg SQ BID (WT < 150 kg, CrCl > 30 mL/min) AND *Sequential Compression Device (SCD) Assessment and Plan Problem List: (1) Intractable pain ICD Code: R52 - Pain, unspecified (2) Hydronephrosis ICD Code: N13.30 - Unspecified hydronephrosis (3) MEGGAN (acute kidney injury) ICD Code: N17.9 - Acute kidney failure, unspecified (4) Leukocytosis ICD Code: D72.829 - Elevated white blood cell count, unspecified (5) HTN (hypertension) ICD Code: I10 - Essential (primary) hypertension Assessment and Plan A/P: 1. Intractable Pain: c/o left-sided flank pain following Lithotripsy 11/16/17. Continue w/ analgesics/antiemetics. 2. Hydronephrosis: CT Abd/Pelvis w/ increasing left hydronephrosis following Lithotripsy w/ possible pyonephrosis and 5mm fragment distal UVJ, 4mm fragment in bladder, images reviewed by me. Urology consulted by ER physician, will follow for recommendations. Stain urine. 3. MEGGAN: Creatinine 1.35, previously 0.90 on 10/04/17. IVF for hydration. Will d/c Toradol in light of renal insufficiency. Repeat labs in am. 4. Leukocytosis: WBC 16. U/a w/ mild LE and bacteriuria. Will start on Azactam IV for possible infected stone/mild UTI. IVF for hydration, repeat labs in am. 5. HTN: Uncontrolled. BP 210's systolic on arrival, likely compounded by pain complaints. Optimize pain control. Monitor BP. Antihypertensives as needed. 6. DVT Prophylaxis: SCD/Teds. 7. Social work for d/c planning as needed. 8. Case discussed w/ ER physician at length, labs/records/imaging reviewed by me. Physician Certification 2 Midnight Certification Type: Admission for Inpatient Services Order for Inpatient Services The services are ordered in accordance with Medicare regulations or non- Medicare payer requirements, as applicable. In the case of services not specified as inpatient-only, they are appropriately provided as inpatient services in accordance with the 2-midnight benchmark. Estimated LOS (days): 2 days is the estimated time the patient will need to remain in the hospital, assuming treatment plan goals are met and no additional complications. Post-Hospital Plan: Not yet determined Anita Espino MD Nov 18, 2017 19:32
[2017-11-18] MEDS: SODIUM CHLOR 0.9% 1000 ML INJ 1,000 ML IV SCH (20:03)
[2017-11-18] MEDS: SODIUM CHLORIDE 0.9% FLUSH 10 ML FLUSH IV FLUSH SCH (21:00)
[2017-11-18] MEDS: oxyCODONE/ACETAMINOPHEN 5 MG/325 MG TAB PO PRN (23:00)
[2017-11-18] MEDS: AZTREONAM INJ 2,000 MG in SODIUM CHLORIDE 0.9% INJ 100 ML IV SCH (23:01)
[2017-11-19] MEDS: SODIUM CHLOR 0.9% 1000 ML INJ 1,000 ML IV SCH ×3 (02:45→14:01)
[2017-11-19 04:49] VITALS: BP 142/82; PULSE 78; RESP 18; TEMP 98.4; O2SAT 95
[2017-11-19] MEDS: AZTREONAM INJ 2,000 MG in SODIUM CHLORIDE 0.9% INJ 100 ML IV SCH ×3 (05:31→20:19)
[2017-11-19] MEDS: SODIUM CHLORIDE 0.9% FLUSH 10 ML FLUSH IV FLUSH SCH ×2 (08:27→20:18)
[2017-11-19] MEDS: ACETAMINOPHEN 325 MG TAB PO PRN ×2 (08:31→20:18)
[2017-11-19 08:39] VITALS: BP 173/87; PULSE 77; RESP 20; TEMP 98.3; O2SAT 90
--- NOTE | 2017-11-19 10:15 | HHI.PR ---
Subjective Remarks This is a 61-year-old female with a PMH of Anxiety, Depression, HTN, Hyperlipidemia, Breast CA and COPD who presented to the ER with complaints of left-sided flank pain starting earlier today. S/p Lithotripsy by Dr. Anguiano on 11/16/17 for 9mm left UPJ stone. States she had been doing well post-op w/ Percocet until today. Reports pain is intermittent, severe, 10/10, non- radiating, associated w/ nausea, no vomiting. States she called Dr. Anguiano's office and was instructed to come to the ER. On arrival, BP 204/110, HR 90, O2 sats 98% on RA, Afebrile. WBC 16.2 with elevated neutrophil count. Creatinine 1.35, previously 0.90 on 10/04/17. UA trace LE, mild bacteriuria. CT Abdomen/ Pelvis with interval fragmentation of 9 mm proximal left ureter stone with 5 mm fragment distal left ureter near UVJ and 4 mm fragment in the bladder, slightly increased moderate left-sided hydronephrosis with perinephric stranding. Dr. Anguiano consulted by ER physician. 3-3 UROLOGY WAS CONSULTED- DW DR TY IN PERSON LESS FLANK PAIN TODAY MULTIPLE DRUG ALLERGIES INCREASE FLUIDS TO 150ML/HR FLOMAX 0.4MG PO DAILY LASIX IV BID Objective Vitals Vital Signs Date Time Temp Pulse Resp B/P (MAP) Pulse Ox O2 Delivery O2 Flow Rate FiO2 11/19/17 08:39 98.3 77 20 173/87 (115) 90 11/19/17 04:49 98.4 78 18 142/82 (102) 95 11/18/17 21:08 98.1 96 17 136/66 (89) 96 11/18/17 19:58 98.5 88 18 150/78 (102) 97 Room Air 11/18/17 16:00 82 12 169/86 (113) 93 Room Air 11/18/17 15:42 87 14 154/88 (110) 94 Room Air 11/18/17 14:57 90 28 204/110 (141) 98 Room Air 11/18/17 14:36 99 Room Air 11/18/17 11:05 98.2 98 18 172/113 (132) 97 I/O 11/18/17 11/18/17 11/18/17 11/19/1718 3/3/18 07:00 15:00 23:00 07:00 15:00 23:00 Intake Total 1000 ml Output Total 250 ml 550 ml Balance 750 ml -550 ml Intake IV Total 1000 ml Output Urine Total 250 ml 550 ml # Voids 1 2 Result Diagram: 11/18/17 1255 11/18/17 1255 Other Results Laboratory Tests Test 11/18/17 12:55 11/18/17 15:30 White Blood Count 16.2 TH/MM3 Red Blood Count 4.82 MIL/MM3 Hemoglobin 14.7 GM/DL Hematocrit 43.6 % Mean Corpuscular Volume 90.5 FL Mean Corpuscular Hemoglobin 30.5 PG Mean Corpuscular Hemoglobin Concent 33.7 % Red Cell Distribution Width 14.5 % Platelet Count 256 TH/MM3 Mean Platelet Volume 7.5 FL Neutrophils (%) (Auto) 83.8 % Lymphocytes (%) (Auto) 7.8 % Monocytes (%) (Auto) 7.5 % Eosinophils (%) (Auto) 0.6 % Basophils (%) (Auto) 0.3 % Neutrophils # (Auto) 13.6 TH/MM3 Lymphocytes # (Auto) 1.3 TH/MM3 Monocytes # (Auto) 1.2 TH/MM3 Eosinophils # (Auto) 0.1 TH/MM3 Basophils # (Auto) 0.0 TH/MM3 CBC Comment DIFF FINAL Differential Comment Blood Urea Nitrogen 13 MG/DL Creatinine 1.35 MG/DL Random Glucose 124 MG/DL Total Protein 8.0 GM/DL Albumin 4.1 GM/DL Calcium Level 9.7 MG/DL Alkaline Phosphatase 132 U/L Aspartate Amino Transf (AST/SGOT) 22 U/L Alanine Aminotransferase (ALT/SGPT) 33 U/L Total Bilirubin 0.6 MG/DL Sodium Level 138 MEQ/L Potassium Level 3.8 MEQ/L Chloride Level 101 MEQ/L Carbon Dioxide Level 28.6 MEQ/L Anion Gap 8 MEQ/L Estimat Glomerular Filtration Rate 40 ML/MIN Lipase 99 U/L Urine Color LIGHT-YELLOW Urine Turbidity CLEAR Urine pH 8.0 Urine Specific [place] 1.009 Urine Protein TRACE mg/dL Urine Glucose (UA) NEG mg/dL Urine Ketones NEG mg/dL Urine Occult Blood MOD Urine Nitrite NEG Urine Bilirubin NEG Urine Urobilinogen LESS THAN 2.0 MG/DL Urine Leukocyte Esterase TRACE Urine RBC 4 /hpf Urine WBC 3 /hpf Microscopic Urinalysis Comment CULT NOT INDICATED Imaging Last Impressions Abdomen/Pelvis CT 11/18/17 0000 Signed Impressions: Service Date/Time: Saturday, November 18, 2017 16:43 - CONCLUSION: 1. Interval fragmentation of 9 mm proximal left ureter calcified calculus with 5 mm fragment in the distal left ureter near the UVJ and 4 mm fragment in the bladder. There is slightly increased moderate left-sided hydronephrosis with perinephric stranding which is likely postprocedural . However, developing pyonephrosis cannot be entirely excluded in the appropriate clinical setting. Ángel Santana MD Objective Remarks GENERAL: Very pleasant middle-aged white female in no acute distress SKIN: Warm and dry. HEAD: Atraumatic. Normocephalic. EYES: Pupils equal and round. No scleral icterus. No injection or drainage. Extraocular muscles intact ENT: No nasal bleeding or discharge. Mucous membranes pink and moist. NECK: Trachea midline. No JVD. CARDIOVASCULAR: Regular rate and rhythm. RESPIRATORY: No accessory muscle use. Clear to auscultation. Breath sounds equal bilaterally. GASTROINTESTINAL: Abdomen soft, non-tender, nondistended. Hepatic and splenic margins not palpable. Less left flank tenderness to palpation MUSCULOSKELETAL: Extremities without clubbing, cyanosis, or edema. No obvious deformities. NEUROLOGICAL: Awake and alert. No obvious cranial nerve deficits. Motor grossly within normal limits. Five out of 5 muscle strength in the arms and legs. Normal speech. PSYCHIATRIC: Appropriate mood and affect; insight and judgment normal. Medications and IVs Current Medications Ondansetron HCl (Zofran Inj) 4 mg ONCE ONCE IVP Last administered on 11/18/17 14:52; Start 11/18/17 at 14:15; Stop 11/18/17 at 14:17; Status DC Sodium Chloride 1,000 ml @ 1,000 mls/hr Q1H IV Last administered on 11/18/17 14:52; Start 11/18/17 at 14:15; Stop 11/18/17 at 15:14; Status DC Sodium Chloride (NS Flush) 2 ml UNSCH PRN IV FLUSH FLUSH AFTER USING IV ACCESS Last administered on 11/18/17 14:52; Start 11/18/17 at 14:15; Stop 11/18/17 at 19: 14; Status DC Ketorolac Tromethamine (Toradol Inj) 30 mg ONCE ONCE IVP Last administered on 11/18/17at 14:51; Start 11/18/17 at 14:15; Stop 11/18/17 at 14:17; Status DC Sodium Chloride (NS Flush) 2 ml UNSCH PRN IV FLUSH FLUSH AFTER USING IV ACCESS ; Start 11/18/17 at 18:30 Sodium Chloride (NS Flush) 2 ml BID IV FLUSH ; Start 11/18/17 at 21:00 Acetaminophen (Tylenol) 650 mg Q6H PRN PO PAIN SCALE 1 TO 2 Last administered on 11/19/17at 08:31; Start 11/18/17 at 18:30 Ketorolac Tromethamine (Toradol Inj) 15 mg Q6H PRN IV PUSH Pain 3-5; if unable to take PO; Start 11/18/17 at 18:30; Stop 11/18/17 at 19:33; Status DC Ketorolac Tromethamine (Toradol Inj) 30 mg Q6H PRN IV PUSH Pain 6-10;if unable to take PO; Start 11/18/17 at 18:30; Stop 11/18/17 at 19:33; Status DC Morphine Sulfate (Morphine Inj) 4 mg Q3H PRN IV PUSH PAIN 6-10 Last administered on 11/19/17at 03:36; Start 11/18/17 at 18:30 Naloxone HCl (Narcan Inj) 0.4 mg UNSCH PRN IV PUSH SEE LABEL COMMENTS; Start at 18:30 Sodium Chloride 1,000 ml @ 125 mls/hr Q8H IV Last administered on 11/18/17at 20: 03; Start 11/18/17 at 18:45 Oxycodone/ Acetaminophen (Percocet 5-325 Mg) 1 tab Q4H PRN PO PAIN 3-5 Last administered on 11/18/17at 23:00; Start 11/18/17 at 19:45 Aztreonam 2000 mg/ Sodium Chloride 100 ml @ 200 mls/hr Q8H IV Last administered on 11/19/17at 05:31; Start 11/18/17 at 21:00 A/P Problem List: (1) Intractable pain ICD Code: R52 - Pain, unspecified (2) Hydronephrosis ICD Code: N13.30 - Unspecified hydronephrosis (3) MEGGAN (acute kidney injury) ICD Code: N17.9 - Acute kidney failure, unspecified (4) Leukocytosis ICD Code: D72.829 - Elevated white blood cell count, unspecified (5) HTN (hypertension) ICD Code: I10 - Essential (primary) hypertension Assessment and Plan 1. Intractable Pain: c/o left-sided flank pain following Lithotripsy 11/16/17. Continue w/ analgesics/antiemetics. 2. Hydronephrosis: CT Abd/Pelvis w/ increasing left hydronephrosis following Lithotripsy w/ possible pyonephrosis and 5mm fragment distal UVJ, 4mm fragment in bladder, images reviewed by me. Urology consulted by ER physician, will follow for recommendations. Strain urine. FLOMAX, IV LASIX BID 3. MEGGAN: Creatinine 1.35, previously 0.90 on 10/04/17. IVF for hydration. Will d/c Toradol in light of renal insufficiency. Repeat labs in am. 4. Leukocytosis: WBC 16. U/a w/ mild LE and bacteriuria. Will start on Azactam IV for possible infected stone/mild UTI. IVF for hydration, repeat labs in am. 150ML/HR 5. HTN: Uncontrolled. BP 210's systolic on arrival, likely compounded by pain complaints. Optimize pain control. Monitor BP. Antihypertensives as needed. 6. DVT Prophylaxis: SCD/Teds. 7. Social work for d/c planning as needed. 8. Case discussed w/ ER physician at length, labs/records/imaging reviewed by me. Discharge Planning Pending urology clearance possible macrobid at discharge due to multiple allergies Rogelio Felix DO Nov 19, 2017 10:15
[2017-11-19] MEDS ORDERED: ACETAMINOPHEN 325 MG TAB PO PRN (10:45)
[2017-11-19] MEDS ORDERED: LACTULOSE SYRUP 20 GM/30 ML CUP PO PRN (10:45)
[2017-11-19] MEDS ORDERED: oxyCODONE/ACETAMINOPHEN 10 MG/325 MG TAB PO PRN (10:45)
[2017-11-19] MEDS ORDERED: MAGNESIUM HYDROXIDE SUSP 30 ML CUP PO PRN (10:45)
[2017-11-19] MEDS ORDERED: BISACODYL 10 MG SUPP RECTAL PRN (10:45)
[2017-11-19] MEDS ORDERED: METOCLOPRAMIDE HCL 10 MG/2 ML VIAL IV PUSH PRN (10:45)
[2017-11-19] MEDS ORDERED: ONDANSETRON HCL 4 MG/2 ML VIAL IVP PRN (10:45)
[2017-11-19] MEDS ORDERED: NALOXONE HCL 0.4 MG/ML AMP IV PUSH PRN (10:45)
[2017-11-19] MEDS ORDERED: MORPHINE SULFATE 2 MG/ML INJ IV PUSH PRN (10:45)
[2017-11-19] MEDS ORDERED: SENNOSIDES 8.6 MG TAB PO PRN (10:45)
[2017-11-19] MEDS ORDERED: SODIUM CHLORIDE 0.9% FLUSH 10 ML FLUSH IV FLUSH PRN (10:45)
[2017-11-19 11:02] LABS: AUTOMATED NEUTROPHIL # 6.5 TH/MM3 (1.8-7.7); BASOPHIL # 0.1 TH/MM3 (0-0.2); BASOPHIL % 0.7 % (0.0-2.0); EOSINOPHIL # 0.3 TH/MM3 (0-0.4); HEMATOCRIT 37.1 % (35.0-46.0); HEMOGLOBIN 12.9 GM/DL (11.6-15.3); LYMPH % 15.5 % (9.0-44.0); LYMPHOCYTE # 1.4 TH/MM3 (1.0-4.8); MEAN CELL VOLUME 89.3 FL (80.0-100.0); MEAN CORPUSCULAR HEMOGLOBIN 31.1 PG (27.0-34.0); MEAN CORPUSCULAR HGB CONC 34.8 % (32.0-36.0); MEAN PLATELET VOLUME 7.4 FL (7.0-11.0); MONO % 8.5 % (0.0-8.0); MONOCYTE # 0.8 TH/MM3 (0-0.9); NEUT % 72.3 % (16.0-70.0); PLATELET COUNT 197 TH/MM3 (150-450); RED BLOOD COUNT 4.15 MIL/MM3 (4.00-5.30); RED CELL DISTRIBUTION WIDTH 14.3 % (11.6-17.2)
[2017-11-19 11:30] LABS: ALBUMIN 3.2 GM/DL (3.4-5.0); ALKALINE PHOSPHATASE 102 U/L (45-117); ALT (GPT) 23 U/L (10-53); AST (GOT) 18 U/L (15-37); BICARBONATE 25.3 MEQ/L (21.0-32.0); BLOOD UREA NITROGEN 11 MG/DL (7-18); CALCIUM 8.8 MG/DL (8.5-10.1); CHLORIDE 107 MEQ/L (98-107); FREE T4 1.46 NG/DL (0.76-1.46); GLOMERULAR FILTRATION RATE 56 ML/MIN (>89); GLUCOSE,RANDOM 162 MG/DL (74-106); MAGNESIUM 1.9 MG/DL (1.5-2.5); PHOSPHORUS 2.8 MG/DL (2.5-4.9); SODIUM (NA) 142 MEQ/L (136-145); TOTAL BILIRUBIN ADULT 0.6 MG/DL (0.2-1.0); TOTAL PROTEIN 6.4 GM/DL (6.4-8.2)
[2017-11-19] MEDS: oxyCODONE/ACETAMINOPHEN 5 MG/325 MG TAB PO PRN (11:42)
[2017-11-19] MEDS: TAMSULOSIN HCL 0.4 MG CAP PO SCH (11:42)
[2017-11-19] MEDS: FUROSEMIDE 20 MG/2 ML VIAL IV PUSH SCH ×2 (11:42→17:32)
--- NOTE | 2017-11-19 12:03 | MB ---
cc: Ash Dumas DO DATE OF CONSULT: 11/19/2017 HISTORY OF PRESENT ILLNESS: Ms. Phipps is a 61-year-old female with history of a 9 mm proximal left ureteral stone who underwent left extracorporeal shockwave lithotripsy on 11/16/2017. She presents with left-sided flank and lower left quadrant pain with evidence of nausea without vomiting but severe pain. She states her pain medicine at home is not controlling her pain. A CT scan was performed in the emergency room which demonstrated a 5 mm fragment in the distal left ureter and a 4 mm fragment within the bladder. There is mild to moderate left-sided hydronephrosis with mild perinephric stranding noted. The patient was admitted for observation yesterday evening and still is having some significant pain this morning. She is able to tolerate her diet, however. She is receiving IV fluids and voiding without any difficulty. PAST MEDICAL HISTORY: Anxiety, depression, hypertension, hyperlipidemia, breast cancer and COPD. PAST SURGICAL HISTORY: Left lumpectomy, tubal ligation and recent left ESWL. ALLERGIES: SHE HAS MULTIPLE ALLERGIES, WHICH WE CAN REFER TO THE CHART. MEDICATIONS: Please refer to the chart. FAMILY HISTORY: Denies any heart disease or diabetes. SOCIAL HISTORY: Negative for alcohol, smoking or drugs. REVIEW OF SYSTEMS: Note nausea. Denies fever or chills, gait disturbances, bleeding disorders. Notes left-sided flank pain, left lower abdominal pain. Denies chest pain, shortness of breath. Denies diarrhea, constipation. Denies skin lesions, psychiatric problems other than her anxiety and depression. PHYSICAL EXAMINATION: VITAL SIGNS: Temperature 98.3, heart rate 77, respiratory rate 20, blood pressure 173/87. GENERAL: She is a well developed, well nourished 61-year-old female, no acute distress. HEENT: Normocephalic, atraumatic. Pupils equal, round, regular, reactive to light. Extraocular movements intact. NECK: Supple. HEART: Regular rate and rhythm. LUNGS: Clear. ABDOMEN: Soft, left lower quadrant tenderness is noted with some palpation. BACK: Mild left CVA tenderness is noted. GENITOURINARY: Normal female external genitalia. EXTREMITIES: Show no evidence of cyanosis, clubbing or edema. NEUROLOGIC: Cranial nerves II-XII intact. SKIN: There are no lesions. PSYCHIATRIC: Somewhat anxious at the present time. LABORATORY STUDIES: White count 9.0, hemoglobin 12.9, hematocrit 37.1, platelet count of 197. Sodium 138, potassium 3.8, chloride 101, CO2 of 28.6, BUN of 13, creatinine 1.35, glucose of 124. IMAGING STUDIES: Again shows a distal 5 mm left UPJ stone with mild to moderate left hydronephrosis. ASSESSMENT: This is a 61-year-old female with a history of a 9 mm proximal ureteral stone status post left extracorporeal shockwave lithotripsy. Patient now with 5 mm distal ureteral stone causing pain with some nausea. PLAN: Continue with IV fluids for now, add Flomax 0.4 mg p.o. at bedtime, increase IV fluid rate to 150 mL an hour. We will continue to observe for now. Thank you for the consultation and allowing me to participate in the care of this patient. DO ERIC Hardy/ALEXIS , 11:12 AM , 12:02 PM
[2017-11-19 12:05] VITALS: BP 157/83; PULSE 82; RESP 18; TEMP 98; O2SAT 93
[2017-11-19 12:16] LABS: HEMOGLOBIN A1C 6.2 % (4.3-6.0)
[2017-11-19 16:51] VITALS: BP 126/73; PULSE 80; RESP 18; TEMP 98.6; O2SAT 94
[2017-11-19 19:23] VITALS: BP 138/75; PULSE 85; RESP 17; TEMP 98.3; O2SAT 96
[2017-11-19] MEDS: DOCUSATE SODIUM 50 MG/SENNA 8.6 MG TAB PO SCH (20:19)
[2017-11-19] MEDS ORDERED: SODIUM CHLORIDE 0.9% FLUSH 10 ML FLUSH IV FLUSH SCH (21:00)
[2017-11-20 00:12] VITALS: BP 148/48; PULSE 78; RESP 17; TEMP 98.4; O2SAT 95
[2017-11-20] MEDS: SODIUM CHLOR 0.9% 1000 ML INJ 1,000 ML IV SCH ×2 (00:36→06:43)
[2017-11-20 03:26] VITALS: BP 178/100; PULSE 75; RESP 17; TEMP 98; O2SAT 96
[2017-11-20] MEDS ORDERED: ALPRAZolam 0.25 MG TAB PO ONE (04:00)
[2017-11-20] MEDS: AZTREONAM INJ 2,000 MG in SODIUM CHLORIDE 0.9% INJ 100 ML IV SCH (05:52)
[2017-11-20] MEDS: ACETAMINOPHEN 325 MG TAB PO PRN (07:15)
[2017-11-20 07:36] LABS: AUTOMATED NEUTROPHIL # 5.5 TH/MM3 (1.8-7.7); BASOPHIL # 0.1 TH/MM3 (0-0.2); BASOPHIL % 0.9 % (0.0-2.0); EOSINOPHIL # 0.3 TH/MM3 (0-0.4); HEMATOCRIT 38.8 % (35.0-46.0); LYMPHOCYTE # 1.2 TH/MM3 (1.0-4.8); MEAN CELL VOLUME 89.7 FL (80.0-100.0); MEAN CORPUSCULAR HGB CONC 33.5 % (32.0-36.0); MEAN PLATELET VOLUME 7.5 FL (7.0-11.0); MONO % 8.1 % (0.0-8.0); MONOCYTE # 0.6 TH/MM3 (0-0.9); PLATELET COUNT 216 TH/MM3 (150-450); RED BLOOD COUNT 4.32 MIL/MM3 (4.00-5.30); WHITE BLOOD COUNT 7.8 TH/MM3 (4.0-11.0)
[2017-11-20 08:05] LABS: ALKALINE PHOSPHATASE 96 U/L (45-117); ALT (GPT) 29 U/L (10-53); PHOSPHORUS 3.3 MG/DL (2.5-4.9); TOTAL BILIRUBIN ADULT 0.5 MG/DL (0.2-1.0); TOTAL PROTEIN 6.7 GM/DL (6.4-8.2)
[2017-11-20 08:07] LABS: ALBUMIN 3.1 GM/DL (3.4-5.0); AST (GOT) 29 U/L (15-37); BICARBONATE 28.4 MEQ/L (21.0-32.0); BLOOD UREA NITROGEN 11 MG/DL (7-18); CALCIUM 9.3 MG/DL (8.5-10.1); CHLORIDE 106 MEQ/L (98-107); CREATININE 0.81 MG/DL (0.50-1.00); GLOMERULAR FILTRATION RATE 72 ML/MIN (>89); GLUCOSE,RANDOM 121 MG/DL (74-106); MAGNESIUM 2.1 MG/DL (1.5-2.5); SODIUM (NA) 141 MEQ/L (136-145)
[2017-11-20] MEDS: DOCUSATE SODIUM 50 MG/SENNA 8.6 MG TAB PO SCH (08:31)
[2017-11-20] MEDS: TAMSULOSIN HCL 0.4 MG CAP PO SCH (08:32)
[2017-11-20] MEDS: SODIUM CHLORIDE 0.9% FLUSH 10 ML FLUSH IV FLUSH SCH (08:32)
[2017-11-20] MEDS: FUROSEMIDE 20 MG/2 ML VIAL IV PUSH SCH (08:32)
--- NOTE | 2017-11-20 09:09 | HHI.PR ---
Subjective Patient symptoms today Pt seen and examined. Feeling better; passed stone. Objective Vital Signs Vital Signs Date Time Temp Pulse Resp B/P (MAP) Pulse Ox O2 Delivery O2 Flow Rate FiO2 11/20/17 03:26 98.0 75 17 178/100 (126) 96 11/20/17 00:12 98.4 78 17 148/48 (81) 95 11/19/17 19:23 98.3 85 17 138/75 (96) 96 11/19/17 16:51 98.6 80 18 126/73 (90) 94 11/19/17 12:05 98.0 82 18 157/83 (107) 93 Intake & Output 11/20/17 11/20/17 07:00 19:00 # Voids 1 Result Diagram: 11/20/17 0525 11/20/17 0525 Objective Remarks Abd:soft,nt,nd Voiding well; stone has passed. Medications and IVs Current Medications Medications (Trade) Dose Ordered Sig/Halley Route Start Time Stop Time Status Last Admin (NS Flush) 2 ml UNSCH PRN IV FLUSH 11/18/17 18:30 (NS Flush) 2 ml BID IV FLUSH 11/18/17 21:00 (Tylenol) 650 mg Q6H PRN PO 11/18/17 18:30 11/20/17 07:15 (Narcan Inj) 0.4 mg UNSCH PRN IV PUSH 11/18/17 18:30 Sodium Chloride 1,000 ml @ 150 mls/hr Q6H40M IV 11/18/17 18:45 11/20/17 00:36 (Percocet 5-325 Mg) 1 tab Q4H PRN PO 11/18/17 19:45 11/19/17 11:42 Aztreonam 2000 mg/ Sodium Chloride 100 ml @ 200 mls/hr Q8H IV 11/18/17 21:00 11/20/17 05:52 (Lasix Inj) 20 mg BID@09,18 IV PUSH 11/19/17 10:45 11/20/17 08:32 (Flomax) 0.4 mg DAILY PO 11/19/17 10:45 11/20/17 08:32 (Tylenol) 650 mg Q4H PRN PO 11/19/17 10:45 (Zofran Inj) 4 mg Q6H PRN IVP 11/19/17 10:45 (Reglan Inj) 5 mg Q6H PRN IV PUSH 11/19/17 10:45 (Percocet 10-325 Mg) 1 tab Q6H PRN PO 11/19/17 10:45 (Morphine Inj) 2 mg Q3H PRN IV PUSH 11/19/17 10:45 (Nita-Colace) 1 tab BID PO 11/19/17 21:00 11/20/17 08:31 (Milk Of Magnesia Liq) 30 ml Q12H PRN PO 11/19/17 10:45 (Senokot) 17.2 mg Q12H PRN PO 11/19/17 10:45 (Dulcolax Supp) 10 mg DAILY PRN RECTAL 11/19/17 10:45 (Lactulose Liq) 30 ml DAILY PRN PO 11/19/17 10:45 Assessment and Plan Assessment and Plan Stable s/p Left ESWL with passage of stone Pt scheduled for f/u visit later this month Will send stone for analysis at that time. Ash Dumas DO Nov 20, 2017 09:09
[2017-11-20 09:13] VITALS: BP 168/91; PULSE 91; RESP 18; TEMP 97.8; O2SAT 96
--- NOTE | 2017-11-20 11:09 | HHI.PR ---
Subjective Remarks This is a 61-year-old female with a PMH of Anxiety, Depression, HTN, Hyperlipidemia, Breast CA and COPD who presented to the ER with complaints of left-sided flank pain starting earlier today. S/p Lithotripsy by Dr. Anguiano on 11/16/17 for 9mm left UPJ stone. States she had been doing well post-op w/ Percocet until today. Reports pain is intermittent, severe, 10/10, non- radiating, associated w/ nausea, no vomiting. States she called Dr. Anguiano's office and was instructed to come to the ER. On arrival, BP 204/110, HR 90, O2 sats 98% on RA, Afebrile. WBC 16.2 with elevated neutrophil count. Creatinine 1.35, previously 0.90 on 10/04/17. UA trace LE, mild bacteriuria. CT Abdomen/ Pelvis with interval fragmentation of 9 mm proximal left ureter stone with 5 mm fragment distal left ureter near UVJ and 4 mm fragment in the bladder, slightly increased moderate left-sided hydronephrosis with perinephric stranding. Dr. Anguiano consulted by ER physician. 3-3 UROLOGY WAS CONSULTED- DW DR TY IN PERSON LESS FLANK PAIN TODAY MULTIPLE DRUG ALLERGIES INCREASE FLUIDS TO 150ML/HR FLOMAX 0.4MG PO DAILY LASIX IV BID 3-4 PASSED THE STONE FEELS BETTER CLEARED BY UROLOGY DC TO HO HOME TODAY MACROBID FOR UTI Objective Vitals Vital Signs Date Time Temp Pulse Resp B/P (MAP) Pulse Ox O2 Delivery O2 Flow Rate FiO2 11/20/17 09:13 97.8 91 18 168/91 (116) 96 11/20/17 03:26 98.0 75 17 178/100 (126) 96 11/20/17 00:12 98.4 78 17 148/48 (81) 95 11/19/17 19:23 98.3 85 17 138/75 (96) 96 11/19/17 16:51 98.6 80 18 126/73 (90) 94 11/19/17 12:05 98.0 82 18 157/83 (107) 93 I/O 11/19/17 11/19/17 11/19/17 11/20/17 11/20/17 11/20/17 07:00 15:00 23:00 07:00 15:00 23:00 Output Total 550 ml Balance -550 ml Output Urine Total 550 ml # Voids 2 1 Result Diagram: 11/20/17 0525 11/20/17 0525 Other Results Laboratory Tests Test 11/18/17 12:55 11/18/17 15:30 11/19/17 10:43 11/20/17 05:25 White Blood Count 16.2 TH/MM3 9.0 TH/MM3 7.8 TH/MM3 Red Blood Count 4.82 MIL/MM3 4.15 MIL/MM3 4.32 MIL/MM3 Hemoglobin 14.7 GM/DL 12.9 GM/DL 13.0 GM/DL Hematocrit 43.6 % 37.1 % 38.8 % Mean Corpuscular Volume 90.5 FL 89.3 FL 89.7 FL Mean Corpuscular Hemoglobin 30.5 PG 31.1 PG 30.0 PG Mean Corpuscular Hemoglobin Concent 33.7 % 34.8 % 33.5 % Red Cell Distribution Width 14.5 % 14.3 % 14.0 % Platelet Count 256 TH/MM3 197 TH/MM3 216 TH/MM3 Mean Platelet Volume 7.5 FL 7.4 FL 7.5 FL Neutrophils (%) (Auto) 83.8 % 72.3 % 71.0 % Lymphocytes (%) (Auto) 7.8 % 15.5 % 16.0 % Monocytes (%) (Auto) 7.5 % 8.5 % 8.1 % Eosinophils (%) (Auto) 0.6 % 3.0 % 4.0 % Basophils (%) (Auto) 0.3 % 0.7 % 0.9 % Neutrophils # (Auto) 13.6 TH/MM3 6.5 TH/MM3 5.5 TH/MM3 Lymphocytes # (Auto) 1.3 TH/MM3 1.4 TH/MM3 1.2 TH/MM3 Monocytes # (Auto) 1.2 TH/MM3 0.8 TH/MM3 0.6 TH/MM3 Eosinophils # (Auto) 0.1 TH/MM3 0.3 TH/MM3 0.3 TH/MM3 Basophils # (Auto) 0.0 TH/MM3 0.1 TH/MM3 0.1 TH/MM3 CBC Comment DIFF FINAL DIFF FINAL DIFF FINAL Differential Comment Blood Urea Nitrogen 13 MG/DL 11 MG/DL 11 MG/DL Creatinine 1.35 MG/DL 1.00 MG/DL 0.81 MG/DL Random Glucose 124 MG/DL 162 MG/DL 121 MG/DL Total Protein 8.0 GM/DL 6.4 GM/DL 6.7 GM/DL Albumin 4.1 GM/DL 3.2 GM/DL 3.1 GM/DL Calcium Level 9.7 MG/DL 8.8 MG/DL 9.3 MG/DL Alkaline Phosphatase 132 U/L 102 U/L 96 U/L Aspartate Amino Transf (AST/SGOT) 22 U/L 18 U/L 29 U/L Alanine Aminotransferase (ALT/SGPT) 33 U/L 23 U/L 29 U/L Total Bilirubin 0.6 MG/DL 0.6 MG/DL 0.5 MG/DL Sodium Level 138 MEQ/L 142 MEQ/L 141 MEQ/L Potassium Level 3.8 MEQ/L 3.7 MEQ/L 3.5 MEQ/L Chloride Level 101 MEQ/L 107 MEQ/L 106 MEQ/L Carbon Dioxide Level 28.6 MEQ/L 25.3 MEQ/L 28.4 MEQ/L Anion Gap 8 MEQ/L 10 MEQ/L 7 MEQ/L Estimat Glomerular Filtration Rate 40 ML/MIN 56 ML/MIN 72 ML/MIN Lipase 99 U/L Urine Color LIGHT-YELLOW Urine Turbidity CLEAR Urine pH 8.0 Urine Specific [place] 1.009 Urine Protein TRACE mg/dL Urine Glucose (UA) NEG mg/dL Urine Ketones NEG mg/dL Urine Occult Blood MOD Urine Nitrite NEG Urine Bilirubin NEG Urine Urobilinogen LESS THAN 2.0 MG/DL Urine Leukocyte Esterase TRACE Urine RBC 4 /hpf Urine WBC 3 /hpf Microscopic Urinalysis Comment CULT NOT INDICATED Phosphorus Level 2.8 MG/DL 3.3 MG/DL Magnesium Level 1.9 MG/DL 2.1 MG/DL Hemoglobin A1c 6.2 % Free Thyroxine 1.46 NG/DL Thyroid Stimulating Hormone 3rd Gen 1.070 uIU/ML Imaging Last Impressions Abdomen/Pelvis CT 11/18/17 0000 Signed Impressions: Service Date/Time: Saturday, November 18, 2017 16:43 - CONCLUSION: 1. Interval fragmentation of 9 mm proximal left ureter calcified calculus with 5 mm fragment in the distal left ureter near the UVJ and 4 mm fragment in the bladder. There is slightly increased moderate left-sided hydronephrosis with perinephric stranding which is likely postprocedural . However, developing pyonephrosis cannot be entirely excluded in the appropriate clinical setting. Ángel Santana MD Objective Remarks GENERAL: Very pleasant middle-aged white female in no acute distress SKIN: Warm and dry. HEAD: Atraumatic. Normocephalic. EYES: Pupils equal and round. No scleral icterus. No injection or drainage. Extraocular muscles intact ENT: No nasal bleeding or discharge. Mucous membranes pink and moist. NECK: Trachea midline. No JVD. CARDIOVASCULAR: Regular rate and rhythm. RESPIRATORY: No accessory muscle use. Clear to auscultation. Breath sounds equal bilaterally. GASTROINTESTINAL: Abdomen soft, non-tender, nondistended. Hepatic and splenic margins not palpable. Less left flank tenderness to palpation MUSCULOSKELETAL: Extremities without clubbing, cyanosis, or edema. No obvious deformities. NEUROLOGICAL: Awake and alert. No obvious cranial nerve deficits. Motor grossly within normal limits. Five out of 5 muscle strength in the arms and legs. Normal speech. PSYCHIATRIC: Appropriate mood and affect; insight and judgment normal. Procedures NONE Medications and IVs Current Medications Ondansetron HCl (Zofran Inj) 4 mg ONCE ONCE IVP Last administered on 11/18/17 14:52; Start 11/18/17 at 14:15; Stop 11/18/17 at 14:17; Status DC Sodium Chloride 1,000 ml @ 1,000 mls/hr Q1H IV Last administered on 11/18/17 14:52; Start 11/18/17 at 14:15; Stop 11/18/17 at 15:14; Status DC Sodium Chloride (NS Flush) 2 ml UNSCH PRN IV FLUSH FLUSH AFTER USING IV ACCESS Last administered on 11/18/17at 14:52; Start 11/18/17 at 14:15; Stop 11/18/17 at 19: 14; Status DC Ketorolac Tromethamine (Toradol Inj) 30 mg ONCE ONCE IVP Last administered on 11/18/17at 14:51; Start 11/18/17 at 14:15; Stop 11/18/17 at 14:17; Status DC Sodium Chloride (NS Flush) 2 ml UNSCH PRN IV FLUSH FLUSH AFTER USING IV ACCESS ; Start 11/18/17 at 18:30 Sodium Chloride (NS Flush) 2 ml BID IV FLUSH ; Start 11/18/17 at 21:00 Acetaminophen (Tylenol) 650 mg Q6H PRN PO PAIN SCALE 1 TO 2 Last administered on 11/20/17 07:15; Start 11/18/17 at 18:30 Ketorolac Tromethamine (Toradol Inj) 15 mg Q6H PRN IV PUSH Pain 3-5; if unable to take PO; Start 11/18/17 at 18:30; Stop 11/18/17 at 19:33; Status DC Ketorolac Tromethamine (Toradol Inj) 30 mg Q6H PRN IV PUSH Pain 6-10;if unable to take PO; Start 11/18/17 at 18:30; Stop 11/18/17 at 19:33; Status DC Morphine Sulfate (Morphine Inj) 4 mg Q3H PRN IV PUSH PAIN 6-10 Last administered on 11/19/17at 03:36; Start 11/18/17 at 18:30; Stop 11/19/17 at 10:56; Status DC Naloxone HCl (Narcan Inj) 0.4 mg UNSCH PRN IV PUSH SEE LABEL COMMENTS; Start at 18:30 Sodium Chloride 1,000 ml @ 150 mls/hr Q6H40M IV Last administered on 11/20/17at 00:36; Start 11/18/17 at 18:45 Oxycodone/ Acetaminophen (Percocet 5-325 Mg) 1 tab Q4H PRN PO PAIN 3-5 Last administered on 11/19/17at 11:42; Start 11/18/17 at 19:45 Aztreonam 2000 mg/ Sodium Chloride 100 ml @ 200 mls/hr Q8H IV Last administered on 11/20/17at 05:52; Start 11/18/17 at 21:00 Furosemide (Lasix Inj) 20 mg BID@09,18 IV PUSH Last administered on 11/20/17 08 :32; Start 11/19/17 at 10:45 Tamsulosin HCl (Flomax) 0.4 mg DAILY PO Last administered on 11/20/17 08:32; Start 11/19/17 at 10:45 Sodium Chloride (NS Flush) 2 ml UNSCH PRN IV FLUSH FLUSH AFTER USING IV ACCESS ; Start 11/19/17 at 10:45; Stop 11/19/17 at 10:56; Status DC Sodium Chloride (NS Flush) 2 ml BID IV FLUSH ; Start 11/19/17 at 21:00; Stop 11/19 at 21:00; Status DC Acetaminophen (Tylenol) 650 mg Q4H PRN PO TEMP > 100.4; Start 11/19/17 at 10:45 Ondansetron HCl (Zofran Inj) 4 mg Q6H PRN IVP NAUSEA OR VOMITING; Start at 10:45 Metoclopramide HCl (Reglan Inj) 5 mg Q6H PRN IV PUSH NAUSEA OR VOMITING; Start 11/19/17 at 10:45 Oxycodone/ Acetaminophen (Percocet 10-325 Mg) 1 tab Q6H PRN PO PAIN SCALE 6 TO 10; Start 11/19/17 at 10:45 Morphine Sulfate (Morphine Inj) 2 mg Q3H PRN IV PUSH Pain 3-5; if unable to take PO; Start 11/19/17 at 10:45 Naloxone HCl (Narcan Inj) 0.4 mg UNSCH PRN IV PUSH SEE LABEL COMMENTS; Start at 10:45; Stop 11/19/17 at 10:56; Status DC Senna/Docusate Sodium (Nita-Colace) 1 tab BID PO Last administered on 11/20/17at 08:31; Start 11/19/17 at 21:00 Magnesium Hydroxide (Milk Of Magnesia Liq) 30 ml Q12H PRN PO Mild constipation ; Start 11/19/17 at 10:45 Sennosides (Senokot) 17.2 mg Q12H PRN PO Moderate constipation; Start 11/19/17 at 10:45 Bisacodyl (Dulcolax Supp) 10 mg DAILY PRN RECTAL SEVERE CONSITIPATION; Start at 10:45 Lactulose (Lactulose Liq) 30 ml DAILY PRN PO SEVERE CONSITIPATION; Start at 10:45 Alprazolam (Xanax) 0.25 mg ONCE ONCE PO Last administered on 11/20/17at 04:18; Start 11/20/17 at 04:00; Stop 11/20/17 at 04:01; Status DC A/P Problem List: (1) Intractable pain ICD Code: R52 - Pain, unspecified (2) Hydronephrosis ICD Code: N13.30 - Unspecified hydronephrosis (3) MEGGAN (acute kidney injury) ICD Code: N17.9 - Acute kidney failure, unspecified (4) Leukocytosis ICD Code: D72.829 - Elevated white blood cell count, unspecified (5) HTN (hypertension) ICD Code: I10 - Essential (primary) hypertension Assessment and Plan 1. Intractable Pain: c/o left-sided flank pain following Lithotripsy 11/16/17. Continue w/ analgesics/antiemetics. -PASSED KIDNEY STONE 2. Hydronephrosis: CT Abd/Pelvis w/ increasing left hydronephrosis following Lithotripsy w/ possible pyonephrosis and 5mm fragment distal UVJ, 4mm fragment in bladder, images reviewed by me. Urology consulted by ER physician, will follow for recommendations. Strain urine. PASSED KIDNEY STONE 3. MEGGAN: Creatinine 1.35, previously 0.90 on 10/04/17. IVF for hydration. Will d/c Toradol in light of renal insufficiency. Repeat labs in am. PASSED KIDNEY STONE 4. Leukocytosis: WBC 16. U/a w/ mild LE and bacteriuria. Will start on Azactam IV for possible infected stone/mild UTI. IVF for hydration, repeat labs in am. 150ML/HR 5. HTN: Uncontrolled. BP 210's systolic on arrival, likely compounded by pain complaints. Optimize pain control. Monitor BP. Antihypertensives as needed. 6. DVT Prophylaxis: SCD/Teds. 7. Social work for d/c planning as needed. 8. Case discussed w/ ER physician at length, labs/records/imaging reviewed by me. DC TO HOME TODAY [facility] RN AND PT AND FAMILY NEEDS LOCAL PCP FOR FOLLOW UP Discharge Planning DC TO HOME TODAY Rogelio Felix DO Nov 20, 2017 11:09
[2017-11-20] MEDS ORDERED: AMLO5 PO (11:12)
[2017-11-20] MEDS ORDERED: PERC5TAB12 PO (11:12)
[2017-11-20] MEDS ORDERED: MACR100C2 PO (11:12)
--- NOTE | 2017-11-20 11:14 | HHI.DS ---
Discharge Summary Admission Date Nov 18, 2017 at 19:05 Discharge Date: Nov 20, 2017 Admitting Diagnosis flank pain; l renal calculi (1) Intractable pain ICD Code: R52 - Pain, unspecified Diagnosis: Principal (2) Hydronephrosis ICD Code: N13.30 - Unspecified hydronephrosis Diagnosis: Principal (3) MEGGAN (acute kidney injury) ICD Code: N17.9 - Acute kidney failure, unspecified Diagnosis: Principal (4) Leukocytosis ICD Code: D72.829 - Elevated white blood cell count, unspecified Diagnosis: Principal (5) HTN (hypertension) ICD Code: I10 - Essential (primary) hypertension Diagnosis: Secondary Procedures NONE Brief History - From Admission This is a 61-year-old female with a PMH of Anxiety, Depression, HTN, Hyperlipidemia, Breast CA and COPD who presented to the ER with complaints of left-sided flank pain starting earlier today. S/p Lithotripsy by Dr. Anguiano on 11/16/17 for 9mm left UPJ stone. States she had been doing well post-op w/ Percocet until today. Reports pain is intermittent, severe, 10/10, non- radiating, associated w/ nausea, no vomiting. States she called Dr. Anguiano's office and was instructed to come to the ER. On arrival, BP 204/110, HR 90, O2 sats 98% on RA, Afebrile. WBC 16.2 with elevated neutrophil count. Creatinine 1.35, previously 0.90 on 10/04/17. UA trace LE, mild bacteriuria. CT Abdomen/ Pelvis with interval fragmentation of 9 mm proximal left ureter stone with 5 mm fragment distal left ureter near UVJ and 4 mm fragment in the bladder, slightly increased moderate left-sided hydronephrosis with perinephric stranding. Dr. Anguiano consulted by ER physician. CBC/BMP: 11/20/17 0525 11/20/17 0525 Significant Findings Laboratory Tests Test 11/18/17 12:55 11/18/17 15:30 11/19/17 10:43 11/20/17 05:25 White Blood Count 16.2 TH/MM3 (4.0-11.0) Neutrophils (%) (Auto) 83.8 % (16.0-70.0) 72.3 % (16.0-70.0) 71.0 % (16.0-70.0) Lymphocytes (%) (Auto) 7.8 % (9.0-44.0) Neutrophils # (Auto) 13.6 TH/MM3 (1.8-7.7) Monocytes # (Auto) 1.2 TH/MM3 (0-0.9) Creatinine 1.35 MG/DL (0.50-1.00) Random Glucose 124 MG/DL (74-106) 162 MG/DL (74-106) 121 MG/DL (74-106) Alkaline Phosphatase 132 U/L (45-117) Estimat Glomerular Filtration Rate 40 ML/MIN (>89) 56 ML/MIN (>89) 72 ML/MIN (>89) Urine Occult Blood MOD (NEG) Urine Leukocyte Esterase TRACE (NEG) Urine RBC 4 /hpf (0-3) Monocytes (%) (Auto) 8.5 % (0.0-8.0) 8.1 % (0.0-8.0) Albumin 3.2 GM/DL (3.4-5.0) 3.1 GM/DL (3.4-5.0) Hemoglobin A1c 6.2 % (4.3-6.0) Imaging Last Impressions Abdomen/Pelvis CT 11/18/17 0000 Signed Impressions: Service Date/Time: Saturday, November 18, 2017 16:43 - CONCLUSION: 1. Interval fragmentation of 9 mm proximal left ureter calcified calculus with 5 mm fragment in the distal left ureter near the UVJ and 4 mm fragment in the bladder. There is slightly increased moderate left-sided hydronephrosis with perinephric stranding which is likely postprocedural . However, developing pyonephrosis cannot be entirely excluded in the appropriate clinical setting. Ángel Santana MD PE at Discharge GENERAL: Very pleasant middle-aged white female in no acute distress SKIN: Warm and dry. HEAD: Atraumatic. Normocephalic. EYES: Pupils equal and round. No scleral icterus. No injection or drainage. Extraocular muscles intact ENT: No nasal bleeding or discharge. Mucous membranes pink and moist. NECK: Trachea midline. No JVD. CARDIOVASCULAR: Regular rate and rhythm. RESPIRATORY: No accessory muscle use. Clear to auscultation. Breath sounds equal bilaterally. GASTROINTESTINAL: Abdomen soft, non-tender, nondistended. Hepatic and splenic margins not palpable. Less left flank tenderness to palpation MUSCULOSKELETAL: Extremities without clubbing, cyanosis, or edema. No obvious deformities. NEUROLOGICAL: Awake and alert. No obvious cranial nerve deficits. Motor grossly within normal limits. Five out of 5 muscle strength in the arms and legs. Normal speech. PSYCHIATRIC: Appropriate mood and affect; insight and judgment normal. Hospital Course This is a 61-year-old female with a PMH of Anxiety, Depression, HTN, Hyperlipidemia, Breast CA and COPD who presented to the ER with complaints of left-sided flank pain starting earlier today. S/p Lithotripsy by Dr. Anguiano on 11/16/17 for 9mm left UPJ stone. States she had been doing well post-op w/ Percocet until today. Reports pain is intermittent, severe, 10/10, non- radiating, associated w/ nausea, no vomiting. States she called Dr. Anguiano's office and was instructed to come to the ER. On arrival, BP 204/110, HR 90, O2 sats 98% on RA, Afebrile. WBC 16.2 with elevated neutrophil count. Creatinine 1.35, previously 0.90 on 10/04/17. UA trace LE, mild bacteriuria. CT Abdomen/ Pelvis with interval fragmentation of 9 mm proximal left ureter stone with 5 mm fragment distal left ureter near UVJ and 4 mm fragment in the bladder, slightly increased moderate left-sided hydronephrosis with perinephric stranding. Dr. Anguiano consulted by ER physician. 3-3 UROLOGY WAS CONSULTED- [facility] T[facility] IN PERSON LESS FLANK PAIN TODAY MULTIPLE DRUG ALLERGIES INCREASE FLUIDS TO 150ML/HR FLOMAX 0.4MG PO DAILY LASIX IV BID 3-4 PASSED THE STONE FEELS BETTER CLEARED BY UROLOGY DC TO HO HOME TODAY MACROBID FOR UTI Pt Condition on Discharge: Good Discharge Disposition: Discharge Home Discharge Time: <= 30 minutes Discharge Instructions DIET: Follow Instructions for: Heart Healthy Diet, Diabetic Diet Speech Therapy-Diet Recommends: Regular Activities you can perform: Regular-No Restrictions Follow up Referrals: PCP Follow-up - 1 Week Urology - 2 Weeks with Piter,Ash Pete DO New Medications: Amlodipine (Norvasc) 5 Mg Tab 5 MG PO DAILY for Blood Pressure Management, #30 TAB 0 Refills Nitrofurantoin Monohydrate Macrocrystals (Macrobid) 100 Mg Cap 100 MG PO BID for Infection for 7 Days, #14 CAP 0 Refills Continued Medications: Aspirin (Aspirin) 81 Mg Chew 81 MG CHEW DAILY, TAB 0 Refills B-Complex Vitamins (B Complex) 1 Cap 1 CAP PO DAILY for Nutritional Supplement, #30 CAP 0 Refills Calcium Carbonate-Cholecalciferol (Calcium 500 +D) 500-400 Mg-Unit Tab 1 TAB PO DAILY for Calcium Supplement, TAB 0 Refills Fluoxetine (Prozac) 40 Mg Cap 40 MG PO BID, #30 CAP 0 Refills Gabapentin (Gabapentin) 300 Mg Cap 300 MG PO BID, #90 CAP 0 Refills Glucosamine-Chondroitin (Glucosamine-Chondroitin) 500-400 Mg Tab 1 TAB PO DAILY for Herbal Supplements, TAB 0 Refills Ibuprofen (Ibuprofen) 800 Mg Tab 800 MG PO Q6HR PRN for PAIN, #40 TAB 0 Refills Letrozole (Letrozole) 2.5 Mg Tab 2.5 MG PO DAILY Levothyroxine (Levothyroxine) 100 Mcg Tab 100 MCG PO DAILY for Thyroid, #30 TAB 0 Refills Lysine HCl (Lysine) 1,000 Mg Tab 1000 MG PO DAILY Omeprazole (Omeprazole) 20 Mg Tab 20 MG PO DAILY, #30 TAB 0 Refills Oxycodone-Acetaminophen (Percocet) 5-325 mg Tab 1 TAB PO Q6H PRN for PAIN, #30 TAB 0 Refills (This prescription has been renewed ) Pentoxifylline ER (Pentoxifylline ER) 400 Mg Tab 400 MG PO TID for Intermittent claudication, #90 TAB 0 Refills Rosuvastatin (Rosuvastatin) 40 Mg Tab 40 MG PO DAILY for Cholesterol Management, #30 TAB 0 Refills Vitamin E (Vitamin E) 200 Unit Cap 400 UNITS PO DAILY for Nutritional Supplement, CAP 0 Refills Discontinued Medications: Oxycodone-Acetaminophen (Percocet) 5-325 mg Tab 1-2 TAB PO Q6H PRN for PAIN, #30 TAB 0 Refills Rogelio Felix DO Nov 20, 2017 11:14
== END 2017-11-20 12:36 | disposition home or self-care (01) | DRG 690 ==
LOC: NEPC 11:00 → NEDA 18:41 → OBSVTOIN 19:05 → NEPGCP 20:30
PROVIDERS: ADMIT Hospitalist; ATTEND Hospitalist
DX: N13.6 Pyonephrosis (principal); N17.9 Acute kidney failure, unspecified; N20.1 Calculus of ureter; J44.9 Chronic obstructive pulmonary disease, unspecified; I25.10 Atherosclerotic heart disease of native coronary artery without angina pectoris; E78.5 Hyperlipidemia, unspecified; G47.30 Sleep apnea, unspecified; E07.9 Disorder of thyroid, unspecified; I10 Essential (primary) hypertension; F32.9 Major depressive disorder, single episode, unspecified; F41.9 Anxiety disorder, unspecified; Z85.3 Personal history of malignant neoplasm of breast; Z88.1 Allergy status to other antibiotic agents; Z88.2 Allergy status to sulfonamides; E03.9 Hypothyroidism, unspecified; Z85.828 Personal history of other malignant neoplasm of skin
CPT/HCPCS: 74176; 80053; 81001; 83036; 83690; 83735; 84100; 84439; 84443; 85025; 96361; 96374; 96375; J1885; J1940; J2270; J2405; J7030